=== PATIENT | male | born 1950 | race African-American/Black ===

== ENCOUNTER → 2016-07-11 | Outpatient (CLI) | payer MEDICARE, MEDICAID | LOC: OD 08:34 | DX: R56.9 Unspecified convulsions (principal) | CPT/HCPCS: 36415; 80164 ==

== ENCOUNTER → 2016-07-15 | Outpatient (CLI) | payer MEDICARE, MEDICAID | LOC: RAD 10:51 | DX: D49.6 Neoplasm of unspecified behavior of brain (principal) | CPT/HCPCS: 82565; 70553; A9577 ==

== ENCOUNTER → 2016-12-16 | Outpatient (CLI) | payer MEDICARE, MEDICAID ==
[2016-12-16 10:01] LABS: ABSOLUTE EOSINOPHILS # (AUTO) 0.7 10^3/uL (0.0-0.6); ABSOLUTE LYMPHOCYTES (AUTO) 1.8 10^3/uL (0.5-4.7); ABSOLUTE MONOCYTES (AUTO) 0.4 10^3/uL (0.1-1.4); ABSOLUTE NEUT (AUTO) 2.7 10^3/uL (1.7-8.2); BASOPHILS % (AUTO) 0.5 % (0-2); EOSINOPHILS % (AUTO) 12.9 % (0-6); HEMATOCRIT 43.1 % (37.9-51.0); HEMOGLOBIN 14.5 g/dL (13.5-17.0); HGB HCT DIFFERENCE 0.4; LYMPHOCYTES % (AUTO) 31.8 % (13-45); MEAN CORPUSCULAR HEMOGLOBIN 32.7 pg (27.0-33.4); MEAN CORPUSCULAR HGB CONC 33.6 g/dL (32.0-36.0); MEAN CORPUSCULAR VOLUME 98 fl (80-97); MONOCYTES % (AUTO) 6.7 % (3-13); RED BLOOD COUNT 4.42 10^6/uL (4.35-5.55); RED CELL DISTRIBUTION WIDTH 13.4 % (11.5-14.0); SEGMENTED NEUTROPHILS % (AUTO) 48.1 % (42-78); WHITE BLOOD COUNT 5.7 10^3/uL (4.0-10.5)
[2016-12-16 10:07] LABS: ALANINE AMINOTRANSFERASE 33 U/L (21-72); ALBUMIN 4.1 g/dL (3.5-5.0); ALKALINE PHOSPHATASE 100 U/L (38-126); ANION GAP 14 (5-19); ASPARTATE AMINO TRANSFERASE 22 U/L (17-59); BILIRUBIN,DIRECT 0.4 mg/dL (0.0-0.4); BILIRUBIN,TOTAL 0.9 mg/dL (0.2-1.3); BLOOD UREA NITROGEN 15 mg/dL (7-20); CALCIUM 10.6 mg/dL (8.4-10.2); CARBON DIOXIDE 28 mmol/L (22-30); CHLORIDE 98 mmol/L (98-107); CREATININE RESULT 0.66 mg/dL (0.52-1.25); GLUCOSE 143 mg/dL (75-110); POTASSIUM 4.3 mmol/L (3.6-5.0); SODIUM 139.5 mmol/L (137-145); TOTAL PROTEIN 7.4 g/dL (6.3-8.2)
[2016-12-16 10:17] LABS: VALPROIC ACID < 10.0 ug/mL (50.0-120.0)
== END ==
LOC: OD 08:55
PROVIDERS: ATTEND Family Medicine Geriatric Medicine
DX: E11.9 Type 2 diabetes mellitus without complications (principal); I10 Essential (primary) hypertension; E78.5 Hyperlipidemia, unspecified; Z79.899 Other long term (current) drug therapy
CPT/HCPCS: 36415; 80053; 80164; 83036; 84443; 85025

== ENCOUNTER → 2016-12-23 | Outpatient (CLI) | payer MEDICARE, MEDICAID ==
[2016-12-23 10:03] LABS: ANION GAP 11 (5-19); BLOOD UREA NITROGEN 14 mg/dL (7-20); CALCIUM 9.1 mg/dL (8.4-10.2); CARBON DIOXIDE 28 mmol/L (22-30); CHLORIDE 100 mmol/L (98-107); CREATININE RESULT 0.59 mg/dL (0.52-1.25); GLUCOSE 122 mg/dL (75-110); POTASSIUM 4.3 mmol/L (3.6-5.0); SODIUM 139.4 mmol/L (137-145)
[2016-12-25 10:38] LABS: CREATININE URINE 85.8 mg/dL (Not Estab.); MICROALBUMIN URINE 202.1 ug/mL (Not Estab.)
== END ==
LOC: OD 08:03
PROVIDERS: ATTEND Family Medicine Geriatric Medicine
DX: Z79.899 Other long term (current) drug therapy (principal)
CPT/HCPCS: 36415; 80048; 82043; 82570

== ENCOUNTER → 2017-04-29 | Outpatient (CLI) | payer MEDICARE, MEDICAID ==
--- NOTE | 2017-04-29 11:59 | RADIOLOGY REPORT (SQ) ---
EXAM DESCRIPTION: BARIUM SWALLOW ESOPHAGUS COMPLETED DATE/TIME: 04/29/2017 10:17 am REASON FOR STUDY: DYSPHAGIA R13.10 DYSPHAGIA, UNSPECIFIED COMPARISON: Two-view chest 05/29/2015 TECHNIQUE: Under fluoroscopic guidance, patient ingested effervescent granules followed by thick and thin barium. Fluoroscopic spot images and routine radiographic images acquired and stored on PACS. 12 MM BARIUM TABLET GIVEN: Yes. No significant delay in passage. LIMITATIONS: None. FLUOROSCOPY TIME: FLUORO TIME: 2 minutes 7 series of digital images saved to PACS. FINDINGS: NEUROMUSCULAR COORDINATION OF SWALLOW: Normal. No aspiration. ESOPHAGEAL MOTILITY: Normal peristalsis with occasional tertiary contractions of the esophagus. No e sophageal spasm. ESOPHAGEAL MUCOSA: Normal mucosa without masses or ulceration. GASTRO-ESOPHAGEAL JUNCTION: Tiny sliding hiatal hernia. Unprovoked gastroesophageal reflux to the mi d 3rd of the esophagus NON-GI TRACT STRUCTURES: No significant finding. OTHER: No other significant finding. IMPRESSION: Tiny sliding hiatal hernia. Unprovoked gastroesophageal reflux to the mid 3rd of the es ophagus Occasional tertiary contractions. COMMENT: Quality ID [id number]: Final reports for procedures using fluoroscopy that document radiation exp osure indices, or exposure time and number of fluorographic images (if radiation exposure indices are not available) TECHNICAL DOCUMENTATION: JOB ID: [id number] [employer]- All Rights Reserved
== END ==
LOC: RAD 09:01
PROVIDERS: ATTEND Otolaryngology
DX: R13.10 Dysphagia, unspecified (principal)
CPT/HCPCS: 74220

== ENCOUNTER → 2017-07-01 | Outpatient (CLI) | payer MEDICARE, MEDICAID | LOC: SP 09:54 | PROVIDERS: ATTEND Specialist | DX: R06.02 Shortness of breath (principal) | CPT/HCPCS: 93306 ==

== ENCOUNTER → 2017-11-19 | Outpatient (CLI) | payer MEDICARE, MEDICAID ==
--- NOTE | 2017-11-19 14:54 | RADIOLOGY REPORT (SQ) ---
EXAM DESCRIPTION: CT CHEST WITHOUT COMPLETED DATE/TIME: 11/19/2017 12:44 pm REASON FOR STUDY: DYSPNEA (R06.00) R06.00 DYSPNEA, UNSPECIFIED COMPARISON: CT chest 12/01/2009 Two-view chest 05/29/2015 TECHNIQUE: CT scan performed of the chest without intravenous contrast. Images reviewed with lung, soft tissue and bone windows. Reconstructed coronal and sagittal MPR images reviewed. All images st ored on PACS. All CT scanners at this facility use dose modulation, iterative reconstruction, and/or weight based d osing when appropriate to reduce radiation dose to as low as reasonably achievable (ALARA). [facility]: Dose Right [facility]: CareDose [facility]: Dose Right [facility]: Teradose 4D [facility]: [employer] RADIATION DOSE: CT Rad equipment meets quality standard of care and radiation dose reduction techniq ues were employed. CTDIvol: 17.9 mGy. DLP: 689 mGy-cm. mGy. LIMITATIONS: No technical limitations. FINDINGS: LUNGS AND PLEURA: Mild hyperlucency with enlarged centrilobular airspaces at both lung api jaylon. No acute infiltrates. No pleural effusion. No pneumothorax. No significant interstitial lung disease by CT. HILAR AND MEDIASTINAL STRUCTURES: No identified masses or abnormal nodes. No obvious aneurysm. HEART AND VASCULAR STRUCTURES: Mild coronary artery calcification. Mild cardiomegaly. No pericardia l effusions. UPPER ABDOMEN: Contracted gallbladder with single calcified stone. Transverse colon diverticuli. THYROID AND OTHER SOFT TISSUES: Thyroid unremarkable. No axillary adenopathy. Bilateral gynecomasti a is present. BONES: No significant finding. HARDWARE: None in the chest. OTHER: No other significant findings. IMPRESSION: Minimal obstructive lung disease at both apices. TECHNICAL DOCUMENTATION: JOB ID: [id number] Quality ID # [id number]: Final reports with documentation of one or more dose reduction techniques (e.g., Au tomated exposure control, adjustment of the mA and/or kV according to patient size, use of iterative reconstruction technique) 2010 [employer]- All Rights Reserved Reading location - IP/workstation name: [email or web address]
== END ==
LOC: RAD 12:22
PROVIDERS: ATTEND Physician Assistant
DX: R06.00 Dyspnea, unspecified (principal)
CPT/HCPCS: 71250

== ENCOUNTER → 2018-03-11 | Outpatient (CLI) | payer MEDICARE, MEDICAID ==
--- NOTE | 2018-03-11 09:38 | RADIOLOGY REPORT (SQ) ---
EXAM DESCRIPTION: SHOULDER RIGHT 2 OR MORE VIEWS COMPLETED DATE/TIME: 03/11/2018 9:24 am REASON FOR STUDY: RT SHOULDER PAIN COMPARISON: None. NUMBER OF VIEWS: Two views right shoulder including AP and scapular Y. LIMITATIONS: None. FINDINGS: No displaced fracture. Mild glenohumeral degenerative change. No right pneumothorax or l nohelia lesion. AC joint intact. OTHER: No other significant finding. IMPRESSION: No acute or suspicious right shoulder radiographic findings. TECHNICAL DOCUMENTATION: JOB ID: [id number] Reading location - IP/workstation name: [email or web address]
[2018-03-13 14:00] LABS: ABSOLUTE EOSINOPHILS # (AUTO) 0.8 10^3/uL (0.0-0.6); ABSOLUTE LYMPHOCYTES (AUTO) 1.5 10^3/uL (0.5-4.7); ABSOLUTE MONOCYTES (AUTO) 0.4 10^3/uL (0.1-1.4); ABSOLUTE NEUT (AUTO) 3.3 10^3/uL (1.7-8.2); BASOPHILS % (AUTO) 0.5 % (0-2); EOSINOPHILS % (AUTO) 12.7 % (0-6); HEMATOCRIT 41.9 % (37.9-51.0); HEMOGLOBIN 14.6 g/dL (13.5-17.0); LYMPHOCYTES % (AUTO) 25.1 % (13-45); MEAN CORPUSCULAR HEMOGLOBIN 33.1 pg (27.0-33.4); MEAN CORPUSCULAR HGB CONC 34.8 g/dL (32.0-36.0); MEAN CORPUSCULAR VOLUME 95 fl (80-97); MONOCYTES % (AUTO) 6.1 % (3-13); PLATELET COUNT 127 10^3/uL (150-450); RED CELL DISTRIBUTION WIDTH 14.3 % (11.5-14.0); SEGMENTED NEUTROPHILS % (AUTO) 55.6 % (42-78); TOTAL CELLS COUNTED % (AUTO) 100 %
[2018-03-13 14:23] LABS: ALANINE AMINOTRANSFERASE 36 U/L (21-72); ALKALINE PHOSPHATASE 85 U/L (38-126); ANION GAP 10 (5-19); ASPARTATE AMINO TRANSFERASE 19 U/L (17-59); BILIRUBIN,DIRECT 0.2 mg/dL (0.0-0.4); BILIRUBIN,TOTAL 0.8 mg/dL (0.2-1.3); BLOOD UREA NITROGEN 18 mg/dL (7-20); CALCIUM 9.2 mg/dL (8.4-10.2); CARBON DIOXIDE 28 mmol/L (22-30); CHLORIDE 98 mmol/L (98-107); CHOLESTEROL 91.18 mg/dL (0-200); GLUCOSE 106 mg/dL (75-110); POTASSIUM 4.6 mmol/L (3.6-5.0); SODIUM 135.6 mmol/L (137-145); TRIGLYCERIDES 103 mg/dL (<150)
[2018-03-13 14:38] LABS: DIRECT LDL < 30 mg/dL (<100)
[2018-03-14 14:38] LABS: CREATININE URINE 52.5 mg/dL (Not Estab.); MICROALBUMIN URINE <3.0 ug/mL (Not Estab.)
== END ==
LOC: OD 08:50
PROVIDERS: ATTEND Family Medicine Geriatric Medicine
DX: E11.42 Type 2 diabetes mellitus with diabetic polyneuropathy (principal); E78.5 Hyperlipidemia, unspecified; E03.9 Hypothyroidism, unspecified; J44.9 Chronic obstructive pulmonary disease, unspecified; M25.511 Pain in right shoulder; Z79.899 Other long term (current) drug therapy
CPT/HCPCS: 36415; 80053; 80061; 82043; 82570; 83036; 84443; 85025

== ENCOUNTER 2018-05-17 14:43 | Emergency (ER) | payer MEDICARE, MEDICAID ==
--- NOTE | 2018-05-17 16:09 | ER Document Report ---
ED Medical Screen (RME) - General Chief Complaint: Low Back Pain Stated Complaint: FALL/BUTTOCK AND BACK PAIN Time Seen by Provider: 05/17/18 16:05 Mode of Arrival: Wheelchair Information source: Patient Notes: Patient presents stating he was going up some stairs yesterday and lost his balance falling on the ground. Patient denies any head injury or loss of consciousness. Patient does complain of left lateral rib tenderness and pain with inspiration. Patient reports some shortness of breath but states this is normal for him given his history of COPD. Patient does complain of a large bruise to the sacral area. Patient complains of pain to left shoulder and low back and sacrum. I have greeted and performed a rapid initial assessment of this patient. A comprehensive ED assessment and evaluation of the patient, analysis of test results and completion of the medical decision making process will be conducted by additional ED providers. TRAVEL OUTSIDE OF THE [place] IN LAST 30 DAYS: No - Related Data Allergies/Adverse Reactions: iodine [Iodine] Allergy (Mild, Verified 08/27/13 16:54) VOMITING Shellfish * [Shellfish] Allergy (Mild, Verified 07/15/13 11:59) VOMITING Past Medical History - Past Medical History Cardiac Medical History: Reports: Hx Congestive Heart Failure, Hx Coronary Artery Disease, Hx Hypercholesterolemia, Hx Hypertension - medicated Denies: Hx Atrial Fibrillation, Hx Heart Attack, Hx Peripheral Vascular Disease, Hx Pulmonary Embolism, Hx Heart Murmur Pulmonary Medical History: Reports: Hx Asthma - COPD, Hx Bronchitis, Hx COPD Denies: Hx Pneumonia, Hx Respiratory Failure, Hx Sleep Apnea, Hx Tuberculosis Neurological Medical History: Reports: Hx Cerebrovascular Accident - 1994 left sided weakness/uses cane, Hx Seizures - LAST SEIZURE 6 MTHS AGO, HAS SMALL SEIZURES Endocrine Medical History: Reports: Hx Diabetes Mellitus Type 2, Hx Hypothyroidism. Denies: Hx Graves' Disease, Hx Hyperthyroidism Renal/ Medical History: Reports: Hx Kidney Stones. Denies: Hx Benign Prostatic Hyperplasia, Hx End Stage Renal Disease, Hx Peritoneal Dialysis Malignancy Medical History: Denies Hx Leukemia, Denies Hx Lung Cancer GI Medical History: Reports: Hx Gastroesophageal Reflux Disease. Denies: Hx Crohn's Disease, Hx Hepatitis, Hx Hiatal Hernia, Hx Irritable Bowel, Hx Liver Failure, Hx Pancreatitis, Hx Ulcer Musculoskeltal Medical History: Reports Hx Arthritis - gout , Denies Hx Fibromyalgia, Reports Hx Multiple Sclerosis, Denies Hx Muscular Dystrophy Psychiatric Medical History: Reports: Hx Depression Denies: Hx Bipolar Disorder, Hx Dementia, Hx Post Traumatic Stress Disorder, Hx Schizophrenia Traumatic Medical History: Denies: Hx Fractures Infectious Medical History: Denies: Hx Hepatitis, Hx HIV Past Surgical History: Reports: Hx Orthopedic Surgery - right knee. Denies: Hx Appendectomy, Hx Bowel Surgery, Hx Cholecystectomy, Hx Colostomy, Hx Coronary Artery Bypass Graft, Hx Gastric Bypass Surgery, Hx Herniorrhaphy, Hx Open Heart Surgery, Hx Pacemaker, Hx Tonsillectomy - Immunizations Hx Diphtheria, Pertussis, Tetanus Vaccination: No Physical Exam - Vital signs Vitals: Temp Pulse Resp BP Pulse Ox 97.4 F 55 L 14 122/51 L 93 05/17/18 15:10 05/17/18 15:10 05/17/18 15:10 05/17/18 15:10 05/17/18 15:10 - Respiratory Chest status: Pain on movement, Pain with cough, Pain with deep breathing Chest palpation: Tender - Left lateral rib tenderness - Back Back: Tender - Sacral tenderness with ecchymotic area Course - Vital Signs Vital signs: Temp Pulse Resp BP Pulse Ox 97.4 F 55 L 14 122/51 L 93 05/17/18 15:10 05/17/18 15:10 05/17/18 15:10 05/17/18 15:10 05/17/18 15:10 Doctor's Discharge - Discharge Referrals: KRISTAL CROCORAN MD [Primary Care Provider] - Follow up as needed
[2018-05-17 17:00] LABS: ABSOLUTE MONOCYTES (AUTO) 0.7 10^3/uL (0.1-1.4); ABSOLUTE NEUT (AUTO) 4.7 10^3/uL (1.7-8.2); BASOPHILS % (AUTO) 0.4 % (0-2); EOSINOPHILS % (AUTO) 11.6 % (0-6); HEMATOCRIT 43.3 % (37.9-51.0); HEMOGLOBIN 15.2 g/dL (13.5-17.0); LYMPHOCYTES % (AUTO) 23.8 % (13-45); MEAN CORPUSCULAR HEMOGLOBIN 33.5 pg (27.0-33.4); MEAN CORPUSCULAR HGB CONC 35.1 g/dL (32.0-36.0); MEAN CORPUSCULAR VOLUME 95 fl (80-97); MONOCYTES % (AUTO) 8.2 % (3-13); PLATELET COUNT 182 10^3/uL (150-450); RED BLOOD COUNT 4.54 10^6/uL (4.35-5.55); RED CELL DISTRIBUTION WIDTH 13.4 % (11.5-14.0); TOTAL CELLS COUNTED % (AUTO) 100 %; WHITE BLOOD COUNT 8.4 10^3/uL (4.0-10.5)
[2018-05-17 17:06] LABS: INTERNATIONAL RATION (INR) 1.18; PROTHROMBIN TIME 15.6 SEC (11.4-15.4)
[2018-05-17 17:07] LABS: PARTIAL THROMBOPLASTIN TIME 39.6 SEC (23.5-35.8)
[2018-05-17 17:16] LABS: APPEARANCE,URINE SLIGHTLY-CLOUDY; BILIRUBIN,URINE NEGATIVE (NEGATIVE); COLOR,URINE YELLOW; GLUCOSE, URINE NEGATIVE (NEGATIVE); KETONES,URINE NEGATIVE (NEGATIVE); LEUKOCYTE ESTERASE,URINE NEGATIVE (NEGATIVE); NITRITE,URINE NEGATIVE (NEGATIVE); PROTEIN,URINE NEGATIVE (NEGATIVE); URINE SPECIFIC GRAVITY 1.021
[2018-05-17 17:20] LABS: ANION GAP 9 (5-19); BLOOD UREA NITROGEN 13 mg/dL (7-20); CALCIUM 9.6 mg/dL (8.4-10.2); CARBON DIOXIDE 30 mmol/L (22-30); CHLORIDE 93 mmol/L (98-107); GLUCOSE 115 mg/dL (75-110); POTASSIUM 4.6 mmol/L (3.6-5.0); SODIUM 132.1 mmol/L (137-145)
--- NOTE | 2018-05-17 17:54 | RADIOLOGY REPORT (SQ) ---
EXAM DESCRIPTION: SACRUM AND COCCYX COMPLETED DATE/TIME: 05/17/2018 5:45 pm REASON FOR STUDY: fall COMPARISON: None. NUMBER OF VIEWS: Three views. TECHNIQUE: AP, lateral, and tilt views of the sacrum and coccyx. LIMITATIONS: None. FINDINGS: MINERALIZATION: Normal. BONES: No acute fracture or dislocation. No worrisome bone lesions. SOFT TISSUES: No soft tissue swelling. No foreign body. OTHER: No other significant finding. IMPRESSION: NEGATIVE STUDY OF THE SACRUM AND COCCYX. TECHNICAL DOCUMENTATION: JOB ID: [id number] [employer] All Rights Reserved Reading location - IP/workstation name: [email or web address]
--- NOTE | 2018-05-17 17:55 | RADIOLOGY REPORT (SQ) ---
EXAM DESCRIPTION: L SPINE WHOLE COMPLETED DATE/TIME: 05/17/2018 5:45 pm REASON FOR STUDY: fall COMPARISON: None. NUMBER OF VIEWS: Five views including obliques. TECHNIQUE: AP, lateral, oblique, and sacral radiographic images acquired of the lumbar spine. LIMITATIONS: None. FINDINGS: MINERALIZATION: Normal. SEGMENTATION: Normal. No transitional anatomy. ALIGNMENT: Normal. VERTEBRAE: Maintained height. No fracture or worrisome bone lesion. DISCS: Multilevel disc space narrowing with osteophytes. POSTERIOR ELEMENTS: Pedicles and facets are intact. No pars defect or posterior arch defects. Facet arthropathy is present. HARDWARE: None in the spine. PARASPINAL SOFT TISSUES: Normal. PELVIS: Intact as visualized. No fractures or worrisome bone lesions. SI joints intact. OTHER: No other significant finding. IMPRESSION: SPONDYLOSIS WITHOUT BONE LESION OR FRACTURE. TECHNICAL DOCUMENTATION: JOB ID: [id number] [employer]- All Rights Reserved Reading location - IP/workstation name: [email or web address]
--- NOTE | 2018-05-17 18:11 | RADIOLOGY REPORT (SQ) ---
EXAM DESCRIPTION: SHOULDER LEFT 2 OR MORE VIEWS COMPLETED DATE/TIME: 05/17/2018 5:45 pm REASON FOR STUDY: fall COMPARISON: Chest x-ray 05/28/2015, left rib series 05/17/2018. NUMBER OF VIEWS: Three views. TECHNIQUE: Internal rotation, external rotation, and Y view images acquired of the left shoulder. LIMITATIONS: None. FINDINGS: MINERALIZATION: Normal. BONES: No acute fracture or dislocation. JOINTS: No dislocation. VISUALIZED LUNGS AND RIBS: No pneumothorax. No displaced rib fracture. SOFT TISSUES: No radiopaque foreign body. IMPRESSION: No radiographic evidence of acute injury at the left shoulder. TECHNICAL DOCUMENTATION: JOB ID: [id number] [place]-[id number] 2010 [employer]- All Rights Reserved Reading location - IP/workstation name: [email or web address]
--- NOTE | 2018-05-17 18:13 | RADIOLOGY REPORT (SQ) ---
EXAM DESCRIPTION: RIBS LEFT W/PA CHEST COMPLETED DATE/TIME: 05/17/2018 5:45 pm REASON FOR STUDY: fall COMPARISON: Chest x-ray 05/29/2015. TECHNIQUE: Frontal view of the chest and additional views of the left ribs acquired. NUMBER OF VIEWS: Five view. LIMITATIONS: None. FINDINGS: FRONTAL CXR: No pneumothorax. No pleural effusion. Mild atelectasis at the left lung bas e. RIBS: No displaced left rib fractures. IMPRESSION: No pneumothorax. No displaced left rib fractures. Mild atelectasis at the left lung ba se. COMMENT: SITE OF TRAUMA/COMPLAINT MARKED/STAMP COMPLETED: NO. TECHNICAL DOCUMENTATION: JOB ID: [id number] OH-[id number] 2010 [employer]- All Rights Reserved Reading location - IP/workstation name: [email or web address]
[2018-05-17] MEDS ORDERED: LIDOCAINE 5% (700 MG) TRANSDERMAL ADH..PATCH TP ONE (19:40)
--- NOTE | 2018-05-17 19:42 | ER Document Report ---
ED General - General Chief Complaint: Low Back Pain Stated Complaint: FALL/BUTTOCK AND BACK PAIN Time Seen by Provider: 05/17/18 16:05 Mode of Arrival: Wheelchair Notes: Patient is a 68-year-old male with history of atrial fibrillation, currently anticoagulant with apixaban, hypertension, hyperlipidemia, obesity, who presents after a falling 24 hours ago onto his buttock and low back. States this is was a mechanical fall, denies any component of syncope. He states that over that time he has had increasing dull, throbbing, constant pain to his buttock and low back. States any movement worsens the pain. Has not tried anything for improvement of the pain. Has not seen his general physician regarding today's concerns. Denies any bowel or bladder incontinence, difficulty walking, urinary retention. Denies hitting his head or neck during the fall. He does also complain of some left lower rib pain with inspiration as well as left shoulder pain. TRAVEL OUTSIDE OF THE [place] IN LAST 30 DAYS: No - Related Data Allergies/Adverse Reactions: iodine [Iodine] Allergy (Mild, Verified 08/27/13 16:54) VOMITING Shellfish * [Shellfish] Allergy (Mild, Verified 07/15/13 11:59) VOMITING Past Medical History - General Information source: Patient - Social History Smoking Status: Former Smoker Frequency of alcohol use: None Drug Abuse: None Lives with: Family Family History: CAD, DM Patient has suicidal ideation: No Patient has homicidal ideation: No - Past Medical History Cardiac Medical History: Reports: Hx Congestive Heart Failure, Hx Coronary Artery Disease, Hx Hypercholesterolemia, Hx Hypertension - medicated Denies: Hx Atrial Fibrillation, Hx Heart Attack, Hx Peripheral Vascular Disease, Hx Pulmonary Embolism, Hx Heart Murmur Pulmonary Medical History: Reports: Hx Asthma - COPD, Hx Bronchitis, Hx COPD Denies: Hx Pneumonia, Hx Respiratory Failure, Hx Sleep Apnea, Hx Tuberculosis Neurological Medical History: Reports: Hx Cerebrovascular Accident - 1994 left sided weakness/uses cane, Hx Seizures - LAST SEIZURE 6 MTHS AGO, HAS SMALL SEIZURES Endocrine Medical History: Reports: Hx Diabetes Mellitus Type 2, Hx Hypothyroidism. Denies: Hx Graves' Disease, Hx Hyperthyroidism Renal/ Medical History: Reports: Hx Kidney Stones. Denies: Hx Benign Prostatic Hyperplasia, Hx End Stage Renal Disease, Hx Peritoneal Dialysis Malignancy Medical History: Denies Hx Leukemia, Denies Hx Lung Cancer GI Medical History: Reports: Hx Gastroesophageal Reflux Disease. Denies: Hx Crohn's Disease, Hx Hepatitis, Hx Hiatal Hernia, Hx Irritable Bowel, Hx Liver Failure, Hx Pancreatitis, Hx Ulcer Musculoskeletal Medical History: Reports Hx Arthritis - gout , Denies Hx Fibromyalgia, Reports Hx Multiple Sclerosis, Denies Hx Muscular Dystrophy Psychiatric Medical History: Reports: Hx Depression Denies: Hx Bipolar Disorder, Hx Dementia, Hx Post Traumatic Stress Disorder, Hx Schizophrenia Traumatic Medical History: Denies: Hx Fractures Infectious Medical History: Denies: Hx Hepatitis, Hx HIV Past Surgical History: Reports: Hx Orthopedic Surgery - right knee. Denies: Hx Appendectomy, Hx Bowel Surgery, Hx Cholecystectomy, Hx Colostomy, Hx Coronary Artery Bypass Graft, Hx Gastric Bypass Surgery, Hx Herniorrhaphy, Hx Open Heart Surgery, Hx Pacemaker, Hx Tonsillectomy - Immunizations Hx Diphtheria, Pertussis, Tetanus Vaccination: No Hx Pneumococcal Vaccination: 01/31/13 Review of Systems - Review of Systems Notes: Constitutional: Negative for fever. Eyes: Negative for visual changes. ENT: Negative for facial injury Cardiovascular: Negative for chest injury. Respiratory: Negative for shortness of breath. Gastrointestinal: Negative for abdominal injury. Genitourinary: Negative for genital injury Musculoskeletal: Positive for low back pain and left shoulder pain Skin: Positive for ecchymosis to the buttock and low back Neurological: Negative for head injury. Physical Exam - Vital signs Vitals: Temp Pulse Resp BP Pulse Ox 97.4 F 55 L 14 122/51 L 93 05/17/18 15:10 05/17/18 15:10 05/17/18 15:10 05/17/18 15:10 05/17/18 15:10 Interpretation: Bradycardic Notes: PHYSICAL EXAMINATION: GENERAL: Well-appearing, no acute distress. HEAD: Atraumatic, normocephalic. EYES: Pupils equal round and reactive to light, extraocular movements intact, sclera anicteric, conjunctiva are normal. ENT: nares patent, no oral pharyngeal trauma. No hemotympanum, no Quiroga's sign , no raccoon eyes. NECK: No midline cervical spine tenderness. Patient able to move their head to 45 bilaterally without any discomfort. LUNGS: Breath sounds clear to auscultation bilaterally and equal. No wheezes rales or rhonchi. HEART: Regular rate and rhythm without murmurs. CHEST WALL: No ecchymosis over the chest wall. ABDOMEN: Soft, nontender, normoactive bowel sounds. No guarding, no rebound. No abdominal bruising EXTREMITIES: Normal range of motion, no pitting or edema. No long bone deformities. BACK: No midline spinal tenderness, step-offs, or deformities. Bruising above the level of the buttocks at the sacral level. NEUROLOGICAL: 5 out of 5 strength both distally and proximally bilateral lower extremities. 2+ patellar reflexes bilaterally. No clonus. Sensation grossly intact in the bilateral lower extremities. Patient is able to ambulate without difficulty. PSYCH: Normal mood, normal affect. SKIN: Warm, Dry, normal turgor, bruising as above Course - Re-evaluation Re-evalutation: 05/17/18 19:41 Presentation of a well patient in no acute distress, vitals within normal limits after a fall approximately 24 hours ago. Patient adamantly denies hitting his head or neck to indicate need for CT of the head or cervical spine. Patient has no focal deformities or limited range of motion in any joint space to indicate need for extremity imaging. However, the patient was complaining of pain to the left shoulder and an x-ray that has been completed is noted to be normal. The patient is also complaining of some lower rib pain on the left side as well as low back pain and sacral pain. X-rays of these affected areas obtained in triage are likewise noted to be normal. Chest and abdominal exam are benign without any focal tenderness, shortness of breath, or bruising over the chest or abdominal wall. Patient has no flank tenderness. There is no obvious findings on trauma exam today and therefore no further imaging or evaluation will be obtained at this time. I've instructed the patient to return to emergency room immediately should they have any worsening or new symptoms that are concerning to them. - Vital Signs Vital signs: Temp Pulse Resp BP Pulse Ox 97.5 F 56 L 20 131/76 H 95 05/17/18 20:02 05/17/18 20:02 05/17/18 20:02 05/17/18 20:02 05/17/18 20:02 - Laboratory Result Diagrams: 05/17/18 16:45 05/17/18 16:45 Laboratory results interpreted by me: 05/17/18 05/17/18 05/17/18 16:45 16:45 16:45 [facility] 33.5 H Eosinophils % 11.6 H Absolute Eosinophils 1.0 H PT 15.6 H APTT 39.6 H Sodium 132.1 L Chloride 93 L Glucose 115 H Urine Urobilinogen 05/17/18 16:45 [facility] Eosinophils % Absolute Eosinophils PT APTT Sodium Chloride Glucose Urine Urobilinogen 4.0 H - Diagnostic Test Radiology reviewed: Image reviewed, Reports reviewed Radiology results interpreted by me: 05/17/18 19:42 Chest x-ray: No acute infiltrate or pneumothorax Left shoulder x-ray: No acute fracture or dislocation Discharge - Discharge Clinical Impression: Fall Qualifiers: Encounter type: initial encounter Qualified Code(s): W19.XXXA - Unspecified fall, initial encounter Traumatic ecchymosis of buttock Qualifiers: Encounter type: initial encounter Qualified Code(s): S30.0XXA - Contusion of lower back and pelvis, initial encounter Low back pain Qualifiers: Chronicity: acute Back pain laterality: bilateral Sciatica presence: without sciatica Qualified Code(s): M54.5 - Low back pain Left shoulder pain Qualifiers: Chronicity: acute Qualified Code(s): M25.512 - Pain in left shoulder Condition: Good Disposition: HOME, SELF-CARE Additional Instructions: You have been seen in the Emergency Department (ED) today following a fall. Your workup today did not reveal any injuries that require you to stay in the hospital. You can expect, though, to be stiff and sore for the next several days. You can take Tylenol 1000 mg every 6 hours as needed for pain. You can apply a hot pack or electric heating pad to the sore areas. You can also use topical "Aspercreme with lidocaine" to sore areas as needed. Please follow up with your primary care doctor as soon as possible regarding today's ED visit and your recent fall. Call your doctor or return to the ED if you develop a sudden or severe headache , confusion, slurred speech, facial droop, weakness or numbness in any arm or leg, extreme fatigue, vomiting more than two times, severe abdominal pain, or other symptoms that concern you. Referrals: KRISTAL CORCORAN MD [Primary Care Provider] - Follow up as needed
[2018-05-17 20:05] VITALS: BP 131/76
--- NOTE | 2018-05-18 00:48 | EKG REPORT ---
SEVERITY:- ABNORMAL ECG - SINUS BRADYCARDIA LAD, CONSIDER LEFT ANTERIOR FASCICULAR BLOCK : Confirmed by: Ana Maria Saini MD 18-May-2018 00:48:24
== END 2018-05-17 20:10 | disposition home or self-care (01) ==
LOC: ER 14:43
DX: S30.0XXA Contusion of lower back and pelvis, initial encounter (principal); M54.5 Low back pain; M25.512 Pain in left shoulder; W18.30XA Fall on same level, unspecified, initial encounter; E66.01 Morbid (severe) obesity due to excess calories; E78.5 Hyperlipidemia, unspecified; I48.91 Unspecified atrial fibrillation; I50.9 Heart failure, unspecified; I11.0 Hypertensive heart disease with heart failure; E78.00 Pure hypercholesterolemia, unspecified; Z79.02 Long term (current) use of antithrombotics/antiplatelets; Z87.442 Personal history of urinary calculi
CPT/HCPCS: 36415; 72110; 72220; 80048; 81001; 85025; 85610; 85730; 93005; 93010; 99284

== ENCOUNTER → 2018-05-28 | Outpatient (CLI) | payer MEDICARE, MEDICAID ==
--- NOTE | 2018-05-28 14:21 | RADIOLOGY REPORT (SQ) ---
EXAM DESCRIPTION: TIBIA FIBULA LEFT COMPLETED DATE/TIME: 05/28/2018 1:57 pm REASON FOR STUDY: PAIN IN LEG, UNSPECIFIED M79.606 PAIN IN LEG, UNSPECIFIED COMPARISON: None. NUMBER OF VIEWS: Two views. TECHNIQUE: Two radiographic images acquired of the left tibia and fibula to include the knee and ank le in at least one projection. LIMITATIONS: None. FINDINGS: MINERALIZATION: Normal. BONES: No acute fracture or dislocation. No worrisome bone lesions. SOFT TISSUES: No obvious swelling or foreign body. OTHER: No other significant finding. IMPRESSION: NEGATIVE STUDY OF THE LEFT TIBIA AND FIBULA. NO RADIOGRAPHIC EVIDENCE OF ACUTE INJURY. TECHNICAL DOCUMENTATION: JOB ID: [id number] [employer]- All Rights Reserved Reading location - IP/workstation name: [email or web address]
== END ==
LOC: OD 13:27
PROVIDERS: ATTEND Family Medicine Geriatric Medicine
DX: M79.662 Pain in left lower leg (principal)

== ENCOUNTER 2018-05-29 10:58 | Emergency (ER) | payer MEDICARE, MEDICAID ==
--- NOTE | 2018-05-29 11:22 | ER Document Report ---
ED Medical Screen (RME) - General Chief Complaint: Leg Pain Stated Complaint: LEG PAIN Time Seen by Provider: 05/29/18 11:18 Notes: Patient is here because of redness of the left lower leg. He fell about a week ago scraping that area. He uses a walker to ambulate. The area has swollen and gotten red in the past couple of days. He reportedly had an x-ray of the leg done yesterday at [facility]. TRAVEL OUTSIDE OF THE [place] IN LAST 30 DAYS: No - Related Data Allergies/Adverse Reactions: iodine [Iodine] Allergy (Mild, Verified 05/29/18 11:01) VOMITING Shellfish * [Shellfish] Allergy (Mild, Verified 05/29/18 11:01) VOMITING Past Medical History - Social History Chew tobacco use (# tins/day): No Frequency of alcohol use: None Drug Abuse: None - Past Medical History Cardiac Medical History: Reports: Hx Congestive Heart Failure, Hx Coronary Artery Disease, Hx Hypercholesterolemia, Hx Hypertension - medicated Denies: Hx Atrial Fibrillation, Hx Heart Attack, Hx Peripheral Vascular Disease, Hx Pulmonary Embolism, Hx Heart Murmur Pulmonary Medical History: Reports: Hx Asthma - COPD, Hx Bronchitis, Hx COPD Denies: Hx Pneumonia, Hx Respiratory Failure, Hx Sleep Apnea, Hx Tuberculosis Neurological Medical History: Reports: Hx Cerebrovascular Accident - 1994 left sided weakness/uses cane, Hx Seizures - LAST SEIZURE 6 MTHS AGO, HAS SMALL SEIZURES Endocrine Medical History: Reports: Hx Diabetes Mellitus Type 2, Hx Hypothyroidism. Denies: Hx Graves' Disease, Hx Hyperthyroidism Renal/ Medical History: Reports: Hx Kidney Stones. Denies: Hx Benign Prostatic Hyperplasia, Hx End Stage Renal Disease, Hx Peritoneal Dialysis Malignancy Medical History: Denies Hx Leukemia, Denies Hx Lung Cancer GI Medical History: Reports: Hx Gastroesophageal Reflux Disease. Denies: Hx Crohn's Disease, Hx Hepatitis, Hx Hiatal Hernia, Hx Irritable Bowel, Hx Liver Failure, Hx Pancreatitis, Hx Ulcer Musculoskeltal Medical History: Reports Hx Arthritis - gout , Denies Hx Fibromyalgia, Reports Hx Multiple Sclerosis, Denies Hx Muscular Dystrophy Psychiatric Medical History: Reports: Hx Depression Denies: Hx Bipolar Disorder, Hx Dementia, Hx Post Traumatic Stress Disorder, Hx Schizophrenia Traumatic Medical History: Denies: Hx Fractures Infectious Medical History: Denies: Hx Hepatitis, Hx HIV Past Surgical History: Reports: Hx Orthopedic Surgery - right knee. Denies: Hx Appendectomy, Hx Bowel Surgery, Hx Cholecystectomy, Hx Colostomy, Hx Coronary Artery Bypass Graft, Hx Gastric Bypass Surgery, Hx Herniorrhaphy, Hx Open Heart Surgery, Hx Pacemaker, Hx Tonsillectomy - Immunizations Hx Diphtheria, Pertussis, Tetanus Vaccination: No Physical Exam - Vital signs Vitals: Temp Pulse Resp BP Pulse Ox 97.5 F 57 L 16 126/65 H 94 05/29/18 11:04 05/29/18 11:04 05/29/18 11:04 05/29/18 11:04 05/29/18 11:04 Course - Vital Signs Vital signs: Temp Pulse Resp BP Pulse Ox 97.5 F 57 L 16 126/65 H 94 05/29/18 11:04 05/29/18 11:04 05/29/18 11:04 05/29/18 11:04 05/29/18 11:04 Doctor's Discharge - Discharge Referrals: RADHA CHAO MD [Primary Care Provider] - Follow up as needed
[2018-05-29 11:57] LABS: ABSOLUTE LYMPHOCYTES (AUTO) 1.2 10^3/uL (0.5-4.7); ABSOLUTE MONOCYTES (AUTO) 0.5 10^3/uL (0.1-1.4); ABSOLUTE NEUT (AUTO) 4.7 10^3/uL (1.7-8.2); BASOPHILS % (AUTO) 0.6 % (0-2); EOSINOPHILS % (AUTO) 13.5 % (0-6); HEMATOCRIT 39.6 % (37.9-51.0); HEMOGLOBIN 13.6 g/dL (13.5-17.0); LYMPHOCYTES % (AUTO) 15.8 % (13-45); MEAN CORPUSCULAR HEMOGLOBIN 33.1 pg (27.0-33.4); MEAN CORPUSCULAR HGB CONC 34.4 g/dL (32.0-36.0); MEAN CORPUSCULAR VOLUME 96 fl (80-97); MONOCYTES % (AUTO) 7.2 % (3-13); PLATELET COUNT 239 10^3/uL (150-450); RED BLOOD COUNT 4.11 10^6/uL (4.35-5.55); RED CELL DISTRIBUTION WIDTH 13.7 % (11.5-14.0); SEGMENTED NEUTROPHILS % (AUTO) 62.9 % (42-78); TOTAL CELLS COUNTED % (AUTO) 100 %; WHITE BLOOD COUNT 7.5 10^3/uL (4.0-10.5)
[2018-05-29 12:19] LABS: ALANINE AMINOTRANSFERASE 21 U/L (21-72); ALBUMIN 4.3 g/dL (3.5-5.0); ALKALINE PHOSPHATASE 167 U/L (38-126); ANION GAP 8 (5-19); ASPARTATE AMINO TRANSFERASE 17 U/L (17-59); BILIRUBIN,DIRECT 0.3 mg/dL (0.0-0.4); BILIRUBIN,TOTAL 0.8 mg/dL (0.2-1.3); BLOOD UREA NITROGEN 14 mg/dL (7-20); CALCIUM 9.7 mg/dL (8.4-10.2); CARBON DIOXIDE 31 mmol/L (22-30); CHLORIDE 98 mmol/L (98-107); GLUCOSE 125 mg/dL (75-110); POTASSIUM 4.6 mmol/L (3.6-5.0); SODIUM 137.4 mmol/L (137-145); TOTAL PROTEIN 6.9 g/dL (6.3-8.2)
[2018-05-29] MEDS ORDERED: CEPHALEXIN 500 MG CAPSULE PO ONE (12:42)
--- NOTE | 2018-05-29 12:42 | ER Document Report ---
ED Extremity Problem, Lower - General Chief Complaint: Leg Pain Stated Complaint: LEG PAIN Time Seen by Provider: 05/29/18 11:18 Mode of Arrival: Medic Information source: Patient Notes: 68-year-old male presented to ED for complaint of redness to his lower left anterior leg. He states he fell about a week ago scraping his knee and he has bruising and scabbed at this area. He states he uses a walker to walk at home. He states he has a home health nurse who told him that he needed to come to the emergency room and have his leg examined. It is very mildly erythematous no abscess noted. He states that he had a x-ray done yesterday at [facility]. Patient states he quit smoking and drinking. He states he has a history of CHF coronary artery disease blood pressure and cholesterol that is all medicated. He also history of asthma and COPD as well as bronchitis. Patient is alert and oriented respirations regular and unlabored at this time speaking in full sentences. TRAVEL OUTSIDE OF THE [place] IN LAST 30 DAYS: No - HPI Patient complains to provider of: Pain, Swelling - mild swelling at scabbed area Location: Leg - left lower leg Occurred: Last week Where: Home, Indoors Onset/Duration: Gradual - Related Data Allergies/Adverse Reactions: iodine [Iodine] Allergy (Mild, Verified 05/29/18 11:01) VOMITING Shellfish * [Shellfish] Allergy (Mild, Verified 05/29/18 11:01) VOMITING Past Medical History - General Information source: Patient - Social History Smoking Status: Former Smoker Chew tobacco use (# tins/day): No Frequency of alcohol use: None Drug Abuse: None Family History: CAD, DM Patient has suicidal ideation: No Patient has homicidal ideation: No - Past Medical History Cardiac Medical History: Reports: Hx Congestive Heart Failure, Hx Coronary Artery Disease, Hx Hypercholesterolemia, Hx Hypertension - medicated Pulmonary Medical History: Reports: Hx Asthma - COPD, Hx Bronchitis, Hx COPD EENT Medical History: Reports: None Neurological Medical History: Reports: Hx Cerebrovascular Accident - 1994 left sided weakness/uses cane, Hx Seizures - LAST SEIZURE 6 MTHS AGO, HAS SMALL SEIZURES Endocrine Medical History: Reports: Hx Diabetes Mellitus Type 2, Hx Hypothyroidism Renal/ Medical History: Reports: None, Hx Kidney Stones. Denies: Hx Benign Prostatic Hyperplasia, Hx End Stage Renal Disease, Hx Peritoneal Dialysis Malignancy Medical History: Reports None GI Medical History: Reports: None, Hx Gastroesophageal Reflux Disease Musculoskeletal Medical History: Reports Hx Arthritis - gout , Reports Hx Gout Skin Medical History: Reports None Psychiatric Medical History: Reports: Hx Depression Traumatic Medical History: Reports: None Infectious Medical History: Reports: None Past Surgical History: Reports: Hx Orthopedic Surgery - right knee - Immunizations Hx Diphtheria, Pertussis, Tetanus Vaccination: No Hx Pneumococcal Vaccination: 01/31/13 Review of Systems - Review of Systems Constitutional: No symptoms reported EENT: No symptoms reported Cardiovascular: No symptoms reported Respiratory: No symptoms reported Gastrointestinal: No symptoms reported Genitourinary: No symptoms reported Male Genitourinary: No symptoms reported Musculoskeletal: No symptoms reported Skin: No symptoms reported, Other - cellulitis to left lower leg Hematologic/Lymphatic: No symptoms reported Neurological/Psychological: No symptoms reported -: Yes All other systems reviewed and negative Physical Exam - Vital signs Vitals: Temp Pulse Resp BP Pulse Ox 97.5 F 57 L 16 126/65 H 94 05/29/18 11:04 05/29/18 11:04 05/29/18 11:04 05/29/18 11:04 05/29/18 11:04 Interpretation: Normal - General General appearance: Appears well, Alert - HEENT Head: Normocephalic, Atraumatic Eyes: Normal Pupils: PERRL - Respiratory Respiratory status: No respiratory distress Chest status: Nontender Breath sounds: Normal Chest palpation: Normal - Cardiovascular Rhythm: Regular Heart sounds: Normal auscultation Murmur: No - Abdominal Inspection: Normal Distension: No distension Bowel sounds: Normal Tenderness: Nontender Organomegaly: No organomegaly - Back Back: Normal, Nontender - Extremities General upper extremity: Normal inspection, Nontender, Normal color, Normal ROM, Normal temperature General lower extremity: Normal ROM, Normal temperature, Normal weight bearing. No: Estevan's sign Calf: Tender - Front of left lower leg, Other - Front of left lower leg with small lump Ankle: Normal, Nontender Foot: Normal, Nontender - Neurological Neuro grossly intact: Yes Cognition: Normal Orientation: AAOx4 [place] Coma Scale Eye Opening: Spontaneous Ale Coma Scale Verbal: Oriented Ale Coma Scale Motor: Obeys Commands Ale Coma Scale Total: 15 Speech: Normal Motor strength normal: LUE, RUE, LLE, RLE Sensory: Normal - Psychological Associated symptoms: Normal affect, Normal mood - Skin Skin Temperature: Warm Skin Moisture: Dry Skin Color: Normal Course - Re-evaluation Re-evalutation: 05/29/18 14:21 Discussed exam and labs with Dr. Hightower. He recommended placing the patient on Keflex and discharge at home and have follow-up with primary doctor. Patient was given a dose of Keflex in the emergency room and discharged home. The site was cleaned well with Betadine and punctured with a 18-gauge needle. No purulent drainage mild amount of blood return. Bacitracin and dressing applied to the site and patient was discharged home. - Vital Signs Vital signs: Temp Pulse Resp BP Pulse Ox 97.5 F 57 L 16 116/62 99 05/29/18 13:33 05/29/18 13:33 05/29/18 13:33 05/29/18 13:33 05/29/18 13:33 - Laboratory Result Diagrams: 05/29/18 11:38 05/29/18 11:38 Laboratory results interpreted by me: 05/29/18 05/29/18 11:38 11:38 RBC 4.11 L Eosinophils % 13.5 H Absolute Eosinophils 1.0 H Carbon Dioxide 31 H Glucose 125 H Alkaline Phosphatase 167 H - Diagnostic Test Radiology reviewed: Image reviewed, Reports reviewed Discharge - Discharge Clinical Impression: Cellulitis of left anterior lower leg Condition: Stable Disposition: HOME, SELF-CARE Additional Instructions: CELLULITIS: You have an infection of your skin and underlying soft tissues called cellulitis. This is due to bacteria, which can enter through any break in the skin, or even through an irritated hair follicle. Untreated, cellulitis will usually worsen. Antibiotics are required. Usually, warm packs or warm soaks, and elevation of the infected area are recommended. You should start getting better within 24 to 36 hours. Most infections respond quickly to the right medication. Follow-up care is important, however, to check for abscess (boil) formation, unsuspected foreign body, or resistant infection. If you develop fever, chills, or if the area of infection is becoming rapidly more swollen or painful, call the doctor at once. SOAP CLEANSING: Gently wash the wound daily using a mild soap (like Ivory, Phisoderm, Neutrogena). Use warm water, rubbing gently until all debris, ooze, and crusting have been washed from the wound. Allow to dry briefly (about 10 minutes) after cleaning. Repeat this cleansing at least three times a day for the first two days and then once or twice a day. ANTIBIOTIC OINTMENT PROTECTION: Your wounds are such that dressing them is not practical or optional. After cleansing, you should apply a thin coating of antibiotic ointment (Bacitracin, not Neosporin) to the wounds at least three times daily. This lessens infection risk, and may decrease the amount of scarring. Use a q-tip or dull butter knife, not your finger, to apply this ointment. Any debris or ooze which builds up in the ointment should be gently rubbed off with a sterile gauze pad. Harder crusting may need to be gently scrubbed o ff with a clean wash cloth with soap and warm water, perhaps applying a warm, wet wash cloth to the wound for ten minutes first. Development of redness, severe itching, or blistering may mean allergy to the ointment. See the doctor. Cephalexin The antibiotic you've been prescribed is a member of the cephalosporin class. This type of antibiotic covers a wide variety of infections, including those of the skin, lungs, and urinary tract. It's useful for staph infections. This antibiotic is slightly similar to the penicillin family. In rare cases, a person who is allergic to penicillin will also be allergic to this medication. If you have had a severe allergic reaction to penicillin, and have not taken this antibiotic since that time, notify your doctor. Antibiotics which cover many germs ("broad spectrum" antibiotics) are more likely to cause diarrhea or "yeast" infections. Women prone to vaginal yeast problems may suffer an attack after taking this antibiotic. In infants, oral thrush (white spots "stuck" on the cheek) or yeast diaper rash may result. See your doctor if these problems occur. Call at once if you develop itching, hives, shortness of breath, or lightheadedness. FOLLOW-UP CARE: If you have been referred to a physician for follow-up care, call the physicians office for an appointment as you were instructed or within the next two days. If you experience worsening or a significant change in your symptoms, notify the physician immediately or return to the Emergency Department at any time for re-evaluation. Prescriptions: Cephalexin Monohydrate [Keflex 500 mg Capsule] 500 mg PO Q6H 5 Days capsule Forms: Elevated Blood Pressure Referrals: RADHA CHAO MD [Primary Care Provider] - Follow up as needed
[2018-05-29 13:34] VITALS: BP 116/62
== END 2018-05-29 13:35 | disposition home or self-care (01) ==
LOC: ER 10:58
DX: L03.116 Cellulitis of left lower limb (principal); M79.605 Pain in left leg; I50.9 Heart failure, unspecified; I25.10 Atherosclerotic heart disease of native coronary artery without angina pectoris; E78.00 Pure hypercholesterolemia, unspecified; I11.0 Hypertensive heart disease with heart failure; J44.9 Chronic obstructive pulmonary disease, unspecified; I69.954 Hemiplegia and hemiparesis following unspecified cerebrovascular disease affecting left non-dominant side; Z87.442 Personal history of urinary calculi
CPT/HCPCS: 99283; 36415; 87040; 85025; 80053; A9270

== ENCOUNTER 2018-09-15 17:01 | Emergency (ER) | payer MEDICARE, MEDICAID ==
--- NOTE | 2018-09-15 18:16 | ER Document Report ---
ED Medical Screen (RME) - General Chief Complaint: Probable Seizure Stated Complaint: POSSIBLE SEIZURE Time Seen by Provider: 09/15/18 18:07 Primary Care Provider: RADHA CHOA MD [Primary Care Provider] - Follow up as needed TRAVEL OUTSIDE OF THE [place] IN LAST 30 DAYS: No - HPI Patient complains to provider of: Possible seizure Notes: 09/15/18 18:14 Patient here with complaints of possible seizure-like activity. He tells me that he was instructed to come the ER due to some shaking spells that he has been having. Was concerned that he might be having some seizures. The patient has difficulty completely explain this to me in triage. He does have a prior history of a brain tumor that was resected. He states that his doctor wanted him to come in to have a CT of his head. He denies any significant complaints at this time. Exam No distress, nontoxic appearing, occasional tremor and shaking noted, continual consciousness. Nonfocal neurological exam. Plan CBC, CMP, CT head. An initial examination was made on the patient as part of the triage process, and it was determined a more comprehensive evaluation was necessary. Initial labs were ordered and patient was transferred to another provider in the ED who assumed care and finished evaluation and plan. - Related Data Allergies/Adverse Reactions: iodine [Iodine] Allergy (Mild, Verified 09/15/18 17:04) VOMITING Shellfish * [Shellfish] Allergy (Mild, Verified 09/15/18 17:04) VOMITING Past Medical History - Past Medical History Cardiac Medical History: Reports: Hx Congestive Heart Failure, Hx Coronary Artery Disease, Hx Hypercholesterolemia, Hx Hypertension - medicated Denies: Hx Atrial Fibrillation, Hx Heart Attack, Hx Peripheral Vascular Disease, Hx Pulmonary Embolism, Hx Heart Murmur Pulmonary Medical History: Reports: Hx Asthma - COPD, Hx Bronchitis, Hx COPD Denies: Hx Pneumonia, Hx Respiratory Failure, Hx Sleep Apnea, Hx Tuberculosis Neurological Medical History: Reports: 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 Denies: Hx Graves' Disease, Hx Hyperthyroidism Renal/ Medical History: Reports: Hx Kidney Stones. Denies: Hx Benign Prostatic Hyperplasia, Hx End Stage Renal Disease, Hx Peritoneal Dialysis Malignancy Medical History: Denies Hx Leukemia, Denies Hx Lung Cancer GI Medical History: Reports: Hx Gastroesophageal Reflux Disease. Denies: Hx Crohn's Disease, Hx Hepatitis, Hx Hiatal Hernia, Hx Irritable Bowel, Hx Liver Failure, Hx Pancreatitis, Hx Ulcer Musculoskeltal Medical History: Reports Hx Arthritis - gout , Denies Hx Fibromyalgia, Reports Hx Gout, Reports Hx Multiple Sclerosis, Denies Hx Muscular Dystrophy Psychiatric Medical History: Reports: Hx Depression Denies: Hx Bipolar Disorder, Hx Dementia, Hx Post Traumatic Stress Disorder, Hx Schizophrenia Traumatic Medical History: Denies: Hx Fractures Infectious Medical History: Denies: Hx Hepatitis, Hx HIV Past Surgical History: Reports: Hx Orthopedic Surgery - right knee. Denies: Hx Appendectomy, Hx Bowel Surgery, Hx Cholecystectomy, Hx Colostomy, Hx Coronary Artery Bypass Graft, Hx Gastric Bypass Surgery, Hx Herniorrhaphy, Hx Open Heart Surgery, Hx Pacemaker, Hx Tonsillectomy - Immunizations Hx Diphtheria, Pertussis, Tetanus Vaccination: No Physical Exam - Vital signs Vitals: Temp Pulse Resp BP Pulse Ox 97.7 F 57 L 16 128/71 H 93 09/15/18 17:32 09/15/18 17:32 09/15/18 17:32 09/15/18 17:32 09/15/18 17:32 Course - Vital Signs Vital signs: Temp Pulse Resp BP Pulse Ox 97.7 F 57 L 16 128/71 H 93 09/15/18 17:32 09/15/18 17:32 09/15/18 17:32 09/15/18 17:32 09/15/18 17:32 Doctor's Discharge - Discharge Referrals: RADHA CHAO MD [Primary Care Provider] - Follow up as needed
[2018-09-15 19:05] LABS: ABSOLUTE EOSINOPHILS # (AUTO) 1.4 10^3/uL (0.0-0.6); ABSOLUTE LYMPHOCYTES (AUTO) 1.5 10^3/uL (0.5-4.7); ABSOLUTE MONOCYTES (AUTO) 0.6 10^3/uL (0.1-1.4); ABSOLUTE NEUT (AUTO) 3.6 10^3/uL (1.7-8.2); BASOPHILS % (AUTO) 0.5 % (0-2); EOSINOPHILS % (AUTO) 19.9 % (0-6); HEMATOCRIT 41.5 % (37.9-51.0); HEMOGLOBIN 14.4 g/dL (13.5-17.0); LYMPHOCYTES % (AUTO) 20.8 % (13-45); MEAN CORPUSCULAR HEMOGLOBIN 32.3 pg (27.0-33.4); MEAN CORPUSCULAR HGB CONC 34.7 g/dL (32.0-36.0); MEAN CORPUSCULAR VOLUME 93 fl (80-97); MONOCYTES % (AUTO) 8.3 % (3-13); PLATELET COUNT 182 10^3/uL (150-450); RED BLOOD COUNT 4.46 10^6/uL (4.35-5.55); RED CELL DISTRIBUTION WIDTH 13.8 % (11.5-14.0); SEGMENTED NEUTROPHILS % (AUTO) 50.5 % (42-78); TOTAL CELLS COUNTED % (AUTO) 100 %; WHITE BLOOD COUNT 7.1 10^3/uL (4.0-10.5)
[2018-09-15 19:23] LABS: ALANINE AMINOTRANSFERASE 24 U/L (21-72); ALBUMIN 4.2 g/dL (3.5-5.0); ALKALINE PHOSPHATASE 131 U/L (38-126); ANION GAP 8 (5-19); ASPARTATE AMINO TRANSFERASE 17 U/L (17-59); BILIRUBIN,DIRECT 0.3 mg/dL (0.0-0.4); BILIRUBIN,TOTAL 0.6 mg/dL (0.2-1.3); BLOOD UREA NITROGEN 17 mg/dL (7-20); CALCIUM 10.1 mg/dL (8.4-10.2); CARBON DIOXIDE 30 mmol/L (22-30); CHLORIDE 96 mmol/L (98-107); GLUCOSE 133 mg/dL (75-110); POTASSIUM 4.8 mmol/L (3.6-5.0); SODIUM 134.2 mmol/L (137-145)
--- NOTE | 2018-09-15 19:48 | RADIOLOGY REPORT (SQ) ---
EXAM DESCRIPTION: CT HEAD WITHOUT COMPLETED DATE/TIME: 09/15/2018 7:12 pm REASON FOR STUDY: possible seizure COMPARISON: 07/15/2016 and earlier TECHNIQUE: Axial images acquired through the brain without intravenous contrast. Images reviewed wi th bone, brain and subdural windows. Additional sagittal and coronal reconstructions were generated. Images stored on PACS. All CT scanners at this facility use dose modulation, iterative reconstruction, and/or weight based d osing when appropriate to reduce radiation dose to as low as reasonably achievable (ALARA). [facility]: Dose Right [facility]: CareDose [facility]: Dose Right [facility]: Teradose 4D [facility]: [employer] RADIATION DOSE: CT Rad equipment meets quality standard of care and radiation dose reduction techniq ues were employed. CTDIvol: 53.2 mGy. DLP: 1203 mGy-cm. mGy. LIMITATIONS: None. FINDINGS: VENTRICLES: Normal for the patient's age. CEREBRUM: No masses. No hemorrhage. No midline shift. No evidence for acute infarction. Unchanged right frontal parietal lobe encephalomalacia due to prior right frontal craniotomy. Physiologic calc ifications of the basal ganglia. CEREBELLUM: No masses. No hemorrhage. No alteration of density. No evidence for acute infarction. EXTRAAXIAL SPACES: No fluid collections. No masses. ORBITS AND GLOBE: No intra- or extraconal masses. Normal contour of globe without masses. CALVARIUM: No fracture. Large osseous overgrowth of the occiput. Postsurgical changes of the right calvarium. Diffuse sclerosis of the visualized osseous structures, similar to prior. PARANASAL SINUSES: Near complete opacification the right maxillary sinus. Remainder of the visualize d paranasal sinuses are clear. SOFT TISSUES: No mass or hematoma. OTHER: No other significant finding. IMPRESSION: 1. No acute intracranial findings. 2. Unchanged right frontal craniotomy with encephalomalacia of the right frontal parietal lobes. EVIDENCE OF ACUTE STROKE: NO. COMMENT: Quality ID # [id number]: Final reports with documentation of one or more dose reduction techniques (e.g., Automated exposure control, adjustment of the mA and/or kV according to patient size, use of iterative reconstruction technique) TECHNICAL DOCUMENTATION: JOB ID: [id number] [employer]- All Rights Reserved Reading location - IP/workstation name: [email or web address]
--- NOTE | 2018-09-15 19:49 | EKG REPORT ---
SEVERITY:- ABNORMAL ECG - SINUS RHYTHM LEFT ANTERIOR FASCICULAR BLOCK : Confirmed by: Ana Maria Saini MD 15-Sep-2018 19:48:40
--- NOTE | 2018-09-15 20:53 | ER Document Report ---
ED General - General Chief Complaint: Probable Seizure Stated Complaint: POSSIBLE SEIZURE Time Seen by Provider: 09/15/18 18:07 Primary Care Provider: RADHA CHAO MD [Primary Care Provider] - Follow up tomorrow Mode of Arrival: Medic Information source: Patient, [facility] Records Notes: 68-year-old male with hypertension, hyperlipidemia, congestive heart failure, COPD, type 2 diabetes, previous history of brain tumor with a resection in 1994 presents via EMS from home for tremors. Patient states that he has had head shaking and upper extremity shaking since his brain tumor resection in 1994. He states that they are occurring more frequently. He states that he remains awake the entire time does not lose control of his bladder and has no tongue biting. He states today his home health nurse is the one that called EMS. He does state that his primary care physician asked him to repeat a CAT scan of his head. He currently denies headache, blurred vision, nausea, vomiting, chest pain, shortness of breath, abdominal pain, dysuria. TRAVEL OUTSIDE OF THE [place] IN LAST 30 DAYS: No - HPI Onset: Just prior to arrival Quality of pain: No pain Severity: None Associated symptoms: None. denies: Chest pain, Productive cough, Fever, Headache, Leg swelling, Nausea, Vomiting, Shortness of breath, Sweating Exacerbated by: Denies Relieved by: Denies Similar symptoms previously: Yes Recently seen / treated by doctor: Yes - Related Data Allergies/Adverse Reactions: iodine [Iodine] Allergy (Mild, Verified 09/15/18 17:04) VOMITING Shellfish * [Shellfish] Allergy (Mild, Verified 09/15/18 17:04) VOMITING Past Medical History - General Information source: Patient, Emergency Med Personnel, [facility] Records - Social History Smoking Status: Former Smoker Frequency of alcohol use: None Drug Abuse: None Lives with: Family Family History: CAD, DM Patient has suicidal ideation: No Patient has homicidal ideation: No - Past Medical History Cardiac Medical History: Reports: Hx Congestive Heart Failure, Hx Coronary Artery Disease, Hx Hypercholesterolemia, Hx Hypertension - medicated Denies: Hx Atrial Fibrillation, Hx Heart Attack, Hx Peripheral Vascular Disease, Hx Pulmonary Embolism, Hx Heart Murmur Pulmonary Medical History: Reports: Hx Asthma - COPD, Hx Bronchitis, Hx COPD Denies: Hx Pneumonia, Hx Respiratory Failure, Hx Sleep Apnea, Hx Tuberculosis Neurological Medical History: Reports: Hx Cerebrovascular Accident - 1994 left sided weakness/uses cane, Hx Seizures - LAST SEIZURE 6 MTHS AGO, HAS SMALL SEIZURES Endocrine Medical History: Reports: Hx Diabetes Mellitus Type 2, Hx Hypothyroidism. Denies: Hx Graves' Disease, Hx Hyperthyroidism Renal/ Medical History: Reports: Hx Kidney Stones. Denies: Hx Benign Prostatic Hyperplasia, Hx End Stage Renal Disease, Hx Peritoneal Dialysis Malignancy Medical History: Denies Hx Leukemia, Denies Hx Lung Cancer GI Medical History: Reports: Hx Gastroesophageal Reflux Disease. Denies: Hx Crohn's Disease, Hx Hepatitis, Hx Hiatal Hernia, Hx Irritable Bowel, Hx Liver Failure, Hx Pancreatitis, Hx Ulcer Musculoskeletal Medical History: Reports Hx Arthritis - gout , Denies Hx Fibromyalgia, Reports Hx Gout, Reports Hx Multiple Sclerosis, Denies Hx Muscular Dystrophy Psychiatric Medical History: Reports: Hx Depression Denies: Hx Bipolar Disorder, Hx Dementia, Hx Post Traumatic Stress Disorder, Hx Schizophrenia Traumatic Medical History: Denies: Hx Fractures Infectious Medical History: Denies: Hx Hepatitis, Hx HIV Past Surgical History: Reports: Hx Orthopedic Surgery - right knee. Denies: Hx Appendectomy, Hx Bowel Surgery, Hx Cholecystectomy, Hx Colostomy, Hx Coronary Artery Bypass Graft, Hx Gastric Bypass Surgery, Hx Herniorrhaphy, Hx Open Heart Surgery, Hx Pacemaker, Hx Tonsillectomy - Immunizations Hx Diphtheria, Pertussis, Tetanus Vaccination: No Hx Pneumococcal Vaccination: 01/31/13 Review of Systems - Review of Systems Notes: REVIEW OF SYSTEMS: CONSTITUTIONAL : Denies fever, chills, or sweats. Denies recent illness. Denies weight loss, recent hospitalizations. EENT: Denies visual changes, eye pain. Denies sore throat, oral lesions, difficulty swallowing. CARDIOVASCULAR: Denies chest pain. Denies palpitations. Denies lower extremity edema. RESPIRATORY: Denies cough. Denies shortness of breath, wheezing. GASTROINTESTINAL: Denies abdominal pain or distention. Denies nausea, vomiting, or diarrhea. Denies blood in vomitus, stools, or per rectum. Denies black, tarry stools. Denies constipation. GENITOURINARY: Denies difficulty urinating, painful urination, frequency, blood in urine, testicular pain or penile discharge. MUSCULOSKELETAL: Denies back or neck pain or stiffness. Denies joint pain or swelling. SKIN: Denies rash, lesions or sores. HEMATOLOGIC : Denies easy bruising or bleeding. LYMPHATIC: Denies swollen glands. NEUROLOGICAL: Denies confusion or altered mental status. Denies loss of consciousness. Denies dizziness or lightheadedness. Denies headache. Denies weakness or paralysis. Denies problems difficulty with ambulation, slurred speech. Denies sensory loss, numbness, or tingling. Denies seizures. PSYCHIATRIC: Denies anxiety or stress. Denies depression, suicidal ideation, or Physical Exam - Vital signs Vitals: Temp Pulse Resp BP Pulse Ox 97.7 F 57 L 16 128/71 H 93 09/15/18 17:32 09/15/18 17:32 09/15/18 17:32 09/15/18 17:32 09/15/18 17:32 - Notes Notes: PHYSICAL EXAMINATION: GENERAL: Well-appearing, well-nourished and in no acute distress. HEAD: Atraumatic, normocephalic. EYES: Pupils equal round and reactive to light, extraocular movements intact, sclera anicteric, conjunctiva are normal. ENT: Nares patent, oropharynx clear without exudates. Moist mucous membranes. NECK: Normal range of motion, supple without lymphadenopathy LUNGS: Breath sounds clear to auscultation bilaterally and equal. No wheezes rales or rhonchi. HEART: Regular rate and rhythm without murmurs ABDOMEN: Soft, nontender, nondistended abdomen. No guarding, no rebound. No masses appreciated. Musculoskeletal: Normal range of motion, no pitting or edema. No cyanosis. NEUROLOGICAL: Cranial nerves grossly intact. Normal speech, normal gait. Normal sensory, motor exams PSYCH: Normal mood, normal affect. SKIN: Warm, Dry, normal turgor, no rashes or lesions noted. Course - Re-evaluation Re-evalutation: 09/17/18 06:05 Laboratory 09/15/18 09/15/18 09/15/18 18:25 18:25 21:10 WBC 7.1 RBC 4.46 Hgb 14.4 Hct 41.5 MCV 93 MCH 32.3 MCHC 34.7 RDW 13.8 Plt Count 182 Seg Neutrophils % 50.5 Lymphocytes % 20.8 Monocytes % 8.3 Eosinophils % 19.9 H Basophils % 0.5 Absolute Neutrophils 3.6 Absolute Lymphocytes 1.5 Absolute Monocytes 0.6 Absolute Eosinophils 1.4 H Absolute Basophils 0.0 Sodium 134.2 L Potassium 4.8 Chloride 96 L Carbon Dioxide 30 Anion Gap 8 BUN 17 Creatinine 0.59 Est GFR ( Amer) > 60 Est GFR (Non-Af Amer) > 60 Glucose 133 H Calcium 10.1 Total Bilirubin 0.6 Direct Bilirubin 0.3 Neonat Total Bilirubin Not Reportable Neonat Direct Bilirubin Not Reportable Neonat Indirect Bili Not Reportable AST 17 ALT 24 Alkaline Phosphatase 131 H Total Protein 7.0 Albumin 4.2 Urine Color YELLOW Urine Appearance CLEAR Urine pH 5.0 Ur Specific Fords 1.021 Urine Protein NEGATIVE Urine Glucose (UA) NEGATIVE Urine Ketones NEGATIVE Urine Blood NEGATIVE Urine Nitrite NEGATIVE Urine Bilirubin NEGATIVE Urine Urobilinogen 4.0 H Ur Leukocyte Esterase NEGATIVE Urine WBC (Auto) 2 Urine RBC (Auto) 7 Calcium Oxalate Cr Auto FEW Urine Mucus (Auto) RARE Urine Ascorbic Acid [address] 09/15/18 18:13 IMPRESSION: 1. No acute intracranial findings. 2. Unchanged right frontal craniotomy with encephalomalacia of the right frontal parietal lobes. EVIDENCE OF ACUTE STROKE: NO. Temp Pulse Resp BP Pulse Ox 98.0 F 57 L 16 129/65 H 97 09/15/18 22:14 09/15/18 17:32 09/15/18 22:14 09/15/18 22:14 09/15/18 22:14 68-year-old male presents via EMS from home due to concern for seizure-like activity. Upon arrival vitals were reviewed and within normal limits. Patient is alert, awake and states that he has had head shaking and upper extremity shaking since his brain tumor resection in 1994. He states that he is experiencing them more frequently and was told by his primary care physician that he should have a repeat CAT scan of his head. CBC, CMP, urinalysis are un remarkable. CT of the head shows no acute intracranial findings. Patient has had no seizure-like activity during his 4-hour ED course. Patient is requesting discharge home. Patient was evaluated and treated as appropriate for the patient's presenting symptoms and complaint, with consideration of any critical or life threatening conditions that may be associated with their obtained history and exam as noted above. All results were discussed with patient. Patient provided the opportunity to ask questions, and express concerns. Patient was educated on treatments based on their presumed diagnosis as noted above. At this time we will discharge the patient with return precautions and follow-up recommendations. Verbal discharge instructions given a the bedside. Medication warnings reviewed. Patient is in agreement with this plan and has verbalized understanding of return precautions. After careful consideration I feel that that patient can be safely discharged from the emergency department, they were advised to followup with a primary care physician in 2-3 days. Dictation on this chart was performed using voice recognition software and may result in unintended grammatical, spelling, syntax or errors. - Vital Signs Vital signs: Temp Pulse Resp BP Pulse Ox 98.0 F 57 L 16 129/65 H 97 09/15/18 22:14 09/15/18 17:32 09/15/18 22:14 09/15/18 22:14 09/15/18 22:14 - Laboratory Result Diagrams: 09/15/18 18:25 09/15/18 18:25 Laboratory results interpreted by me: 09/15/18 09/15/18 09/15/18 18:25 18:25 21:10 Eosinophils % 19.9 H Absolute Eosinophils 1.4 H Sodium 134.2 L Chloride 96 L Glucose 133 H Alkaline Phosphatase 131 H Urine Urobilinogen 4.0 H Urine Ascorbic Acid 40 H - Diagnostic Test Radiology reviewed: Image reviewed, Reports reviewed - EKG Interpretation by Me EKG shows normal: Sinus rhythm Rate: Normal Rhythm: NSR [place]/QRS: LAHB/LAFB When compared to previous EKG there are: No significant change Discharge - Discharge Clinical Impression: Personal history of traumatic brain injury, Coarse tremors Condition: Good Disposition: HOME, SELF-CARE Additional Instructions: Your lab work and imaging were normal today. I have provided you a copy of both to bring to your primary care physician. Follow up with your [id number] hours for further care or return to the ED IMMEDIATELY if symptoms worsen or you have any concerns. If you cannot afford to follow up with your primary care physician a list of low cost clinics have been provided at the end of your discharge papers as well. Most prescribed medications have multiple side effects. The safest thing to do is when filling your prescription speak to your pharmacist regarding possible i nteractions with your normal home medications and over the counter medications such as Ibuprofen, Tylenol, Benadryl. If you experience any symptoms that cause you discomfort or concern you should discontinue the medication immediately and return to the emergency room or call your primary care physician. Forms: Elevated Blood Pressure Referrals: RADHA CHAO MD [Primary Care Provider] - Follow up tomorrow
[2018-09-15 21:38] LABS: APPEARANCE,URINE CLEAR; BILIRUBIN,URINE NEGATIVE (NEGATIVE); CALCIUM OXALATE CRYSTALS,URINE FEW /HPF; COLOR,URINE YELLOW; GLUCOSE, URINE NEGATIVE (NEGATIVE); KETONES,URINE NEGATIVE (NEGATIVE); LEUKOCYTE ESTERASE,URINE NEGATIVE (NEGATIVE); NITRITE,URINE NEGATIVE (NEGATIVE); PROTEIN,URINE NEGATIVE (NEGATIVE); URINE SPECIFIC GRAVITY 1.021
[2018-09-15 22:22] VITALS: BP 129/65
== END 2018-09-15 23:26 | disposition home or self-care (01) ==
LOC: ER 17:01
DX: R25.1 Tremor, unspecified (principal); Z87.820 Personal history of traumatic brain injury; G93.89 Other specified disorders of brain; I44.4 Left anterior fascicular block; I25.10 Atherosclerotic heart disease of native coronary artery without angina pectoris; I10 Essential (primary) hypertension; J44.9 Chronic obstructive pulmonary disease, unspecified; E11.9 Type 2 diabetes mellitus without complications; Z91.013 Allergy to seafood; Z87.891 Personal history of nicotine dependence
CPT/HCPCS: 36415; 51701; 70450; 80053; 81001; 85025; 93005; 93010; 99284; C1758

== ENCOUNTER → 2018-10-19 | Outpatient (CLI) | payer MEDICARE, MEDICAID ==
[2018-10-19 09:13] LABS: ABSOLUTE LYMPHOCYTES (AUTO) 1.1 10^3/uL (0.5-4.7); ABSOLUTE MONOCYTES (AUTO) 0.5 10^3/uL (0.1-1.4); ABSOLUTE NEUT (AUTO) 4.9 10^3/uL (1.7-8.2); BASOPHILS % (AUTO) 0.4 % (0-2); EOSINOPHILS % (AUTO) 13.6 % (0-6); HEMATOCRIT 39.1 % (37.9-51.0); HEMOGLOBIN 13.3 g/dL (13.5-17.0); LYMPHOCYTES % (AUTO) 14.9 % (13-45); MEAN CORPUSCULAR HEMOGLOBIN 31.3 pg (27.0-33.4); MEAN CORPUSCULAR HGB CONC 34.1 g/dL (32.0-36.0); MEAN CORPUSCULAR VOLUME 92 fl (80-97); MONOCYTES % (AUTO) 6.9 % (3-13); PLATELET COUNT 141 10^3/uL (150-450); RED BLOOD COUNT 4.26 10^6/uL (4.35-5.55); RED CELL DISTRIBUTION WIDTH 14.5 % (11.5-14.0); SEGMENTED NEUTROPHILS % (AUTO) 64.2 % (42-78); TOTAL CELLS COUNTED % (AUTO) 100 %; WHITE BLOOD COUNT 7.6 10^3/uL (4.0-10.5)
[2018-10-19 09:39] LABS: ALANINE AMINOTRANSFERASE 23 U/L (21-72); ALBUMIN 3.7 g/dL (3.5-5.0); ALKALINE PHOSPHATASE 120 U/L (38-126); ANION GAP 9 (5-19); ASPARTATE AMINO TRANSFERASE 15 U/L (17-59); BILIRUBIN,DIRECT 0.2 mg/dL (0.0-0.4); BILIRUBIN,TOTAL 0.4 mg/dL (0.2-1.3); BLOOD UREA NITROGEN 13 mg/dL (7-20); CALCIUM 9.2 mg/dL (8.4-10.2); CARBON DIOXIDE 31 mmol/L (22-30); CHLORIDE 96 mmol/L (98-107); CHOLESTEROL 79.73 mg/dL (0-200); GLUCOSE 108 mg/dL (75-110); POTASSIUM 4.5 mmol/L (3.6-5.0); SODIUM 136.2 mmol/L (137-145); TOTAL PROTEIN 6.2 g/dL (6.3-8.2); TRIGLYCERIDES 132 mg/dL (<150)
[2018-10-19 09:50] LABS: DIRECT LDL 39 mg/dL (<100)
--- NOTE | 2018-10-19 13:10 | RADIOLOGY REPORT (SQ) ---
EXAM DESCRIPTION: FOOT LEFT COMPLETE COMPLETED DATE/TIME: 10/19/2018 10:08 am REASON FOR STUDY: FOOT PAIN (M79.672) S99.922A UNSPECIFIED INJURY OF LEFT FOOT, INITIAL ENCOUNTER M 79.672 PAIN IN LEFT FOOT E11.42 TYPE 2 DIABETES MELLITUS WITH DIABETIC POLYNEUROPATHY COMPARISON: None. NUMBER OF VIEWS: Three views. TECHNIQUE: AP, lateral and oblique radiographic images acquired of the left foot. LIMITATIONS: None. FINDINGS: MINERALIZATION: Normal. BONES: No acute fracture or dislocation. No worrisome bone lesions. JOINTS: Significant degenerative joint changes at the 1st metatarsal-phalangeal joint. SOFT TISSUES: No soft tissue swelling. No foreign body. OTHER: No other significant finding. IMPRESSION: Degenerative joint disease. TECHNICAL DOCUMENTATION: JOB ID: [id number] [employer]- All Rights Reserved Reading location - IP/workstation name: [email or web address]
[2018-10-20 13:37] LABS: CREATININE URINE 99.7 mg/dL (Not Estab.); MICROALBUMIN URINE 7.3 ug/mL (Not Estab.)
== END ==
LOC: RAD 08:32
PROVIDERS: ATTEND Family Medicine Geriatric Medicine
DX: S99.922A Unspecified injury of left foot, initial encounter (principal); M79.672 Pain in left foot; E11.42 Type 2 diabetes mellitus with diabetic polyneuropathy; M19.072 Primary osteoarthritis, left ankle and foot; X58.XXXA Exposure to other specified factors, initial encounter
CPT/HCPCS: 36415; 80053; 80061; 82043; 82570; 84443; 85025

== ENCOUNTER → 2018-11-12 | Outpatient (CLI) | payer MEDICARE, MEDICAID ==
--- NOTE | 2018-11-12 15:03 | RADIOLOGY REPORT (SQ) ---
EXAM DESCRIPTION: CT LUNG CANCER SCREENING COMPLETED DATE/TIME: 11/12/2018 2:07 pm REASON FOR STUDY: HX OF NICOTINE DEPENDENCE (Z87.891) Z87.891 PERSONAL HISTORY OF NICOTINE DEPENDEN CE Has the patient had a Chest CT scan within the past year? Prior CT chest 11/19/2017 Was the patient offered tobacco cessation counseling? No, already quit smoking Was the patient engaged in shared decision making for this test? Yes Does the patient have signs or symptoms of Lung Cancer? No Is the patient a smoker? No How many pack years? greater than 70 How many years since quitting smoking? 8 years Patients age: 68 COMPARISON: None. TECHNIQUE: Low Dose CT scan performed of the chest without intravenous contrast for purposes of scre ening for lung cancer. Images reviewed with lung, soft tissue and bone windows. Reconstructed coron al and sagittal MPR images reviewed. All images stored on PACS. All CT scanners at this facility use dose modulation, iterative reconstruction, and/or weight based d osing when appropriate to reduce radiation dose to as low as reasonably achievable (ALARA). [facility]: Dose Right [facility]: CareDose [facility]: Dose Right [facility]: Teradose 4D [facility]: Cardoc RADIATION DOSE: CT Rad equipment meets quality standard of care and radiation dose reduction techniq ues were employed. CTDIvol: NaN mGy. DLP: 0 mGy-cm. mGy. . LIMITATIONS: None FINDINGS: LUNGS AND PLEURA: No masses or nodules. No pleural effusions or calcifications. No pne umothorax. No scarring or interstitial changes. HILAR AND MEDIASTINAL STRUCTURES: No identified masses. No abnormal nodes. HEART AND VASCULAR STRUCTURES: Mild cardiomegaly No aortic aneurysm. No pericardial effusion. No c ardiac devices. CORONARY ARTERY CALCIFICATIONS: Mild to moderate calcifications. UPPER ABDOMEN, THYROID, BONES, OTHER SOFT TISSUES: No significant findings. IMPRESSION: NO SIGNIFICANT FINDING IN THE LUNGS ON NON-CONTRASTED CHEST CT. OTHER FINDINGS ABOVE. LUNGRADS: LUNGRADS: 1 NEGATIVE. NO NODULES, OR DEFINITELY BENIGN NODULES MODIFIER: NONE RECOMMENDATION: Continue annual screening with LDCT in 12 months. COMMENT: CRITERIA: No lung nodules. Nodules with specific calcifications: Complete, central, popcorn, concentric rings and fat containin g nodules. TECHNICAL DOCUMENTATION: JOB ID: [id number] Quality ID # [id number]: Final reports with documentation of one or more dose reduction techniques (e.g., Au tomated exposure control, adjustment of the mA and/or kV according to patient size, use of iterative reconstruction technique) 2010 [facility] Reading location - IP/workstation name: [email or web address]
== END ==
LOC: RAD 13:43
PROVIDERS: ATTEND Internal Medicine Pulmonary Disease
DX: Z12.2 Encounter for screening for malignant neoplasm of respiratory organs (principal); I25.10 Atherosclerotic heart disease of native coronary artery without angina pectoris; Z87.891 Personal history of nicotine dependence
CPT/HCPCS: G0297

== ENCOUNTER 2018-11-25 20:08 | Emergency (ER) | payer MEDICARE, MEDICAID ==
[2018-11-25 21:00] VITALS: BP 120/60
== END 2018-11-25 21:22 | disposition left against medical advice (07) ==
LOC: ER 20:08
DX: Z53.21 Procedure and treatment not carried out due to patient leaving prior to being seen by health care provider (principal)

== ENCOUNTER 2019-01-22 09:57 | Observation (INO) | payer MEDICARE, MEDICAID ==
[2019-01-22 11:03] LABS: ABSOLUTE EOSINOPHILS # (AUTO) 0.9 10^3/uL (0.0-0.6); ABSOLUTE LYMPHOCYTES (AUTO) 1.1 10^3/uL (0.5-4.7); ABSOLUTE MONOCYTES (AUTO) 0.6 10^3/uL (0.1-1.4); ABSOLUTE NEUT (AUTO) 5.7 10^3/uL (1.7-8.2); ANION GAP 8 (5-19); BASOPHILS % (AUTO) 0.3 % (0-2); BLOOD UREA NITROGEN 10 mg/dL (7-20); CALCIUM 9.2 mg/dL (8.4-10.2); CARBON DIOXIDE 27 mmol/L (22-30); CHLORIDE 93 mmol/L (98-107); EOSINOPHILS % (AUTO) 10.1 % (0-6); GLUCOSE 133 mg/dL (75-110); HEMATOCRIT 37.6 % (37.9-51.0); HEMOGLOBIN 12.9 g/dL (13.5-17.0); LYMPHOCYTES % (AUTO) 13.7 % (13-45); MEAN CORPUSCULAR HEMOGLOBIN 30.9 pg (27.0-33.4); MEAN CORPUSCULAR HGB CONC 34.4 g/dL (32.0-36.0); MEAN CORPUSCULAR VOLUME 90 fl (80-97); MONOCYTES % (AUTO) 7.5 % (3-13); PLATELET COUNT 146 10^3/uL (150-450); POTASSIUM 4.3 mmol/L (3.6-5.0); RED BLOOD COUNT 4.18 10^6/uL (4.35-5.55); RED CELL DISTRIBUTION WIDTH 14.9 % (11.5-14.0); SEGMENTED NEUTROPHILS % (AUTO) 68.4 % (42-78); TOTAL CELLS COUNTED % (AUTO) 100 %; WHITE BLOOD COUNT 8.4 10^3/uL (4.0-10.5)
--- NOTE | 2019-01-22 11:08 | ER Document Report ---
ED General - General Chief Complaint: Headache Stated Complaint: DIZZINESS Time Seen by Provider: 01/22/19 10:21 Primary Care Provider: RADHA CHAO MD [Primary Care Provider] - Follow up as needed Information source: Patient Notes: HPI: Patient is a 68-year-old male with past medical history as recorded including a history of traumatic brain injury requiring surgery with some left-sided intermittent spastic jerks who states that he woke up and he had some face numbness around the mouth. He had previously stated he has had a headache but he denies this to me. He denies any blurry vision, neck pain, trauma, chest pain, palpitations, weakness or numbness. Patient lives alone at home with his aunt who helps take care of him and he is followed by home health. ROS: See HPI All other review of systems reviewed and otherwise negative Reviewed vital signs and nursing note as charted by RN. PHYSICAL EXAM: CONSTITUTIONAL: Alert and does answer questions and follow commands. He is confused about the year in the month which appears to be baseline according to social work at bedside HEAD: Normocephalic; atraumatic EYES: PERRL; full extraocular range of motion; conjunctivae clear, sclerae non- icteric ENT: Normal nose; no rhinorrhea; moist mucous membranes; pharynx without lesions noted NECK: Supple without meningismus; non-tender; no cervical lymphadenopathy, no masses CARD: Regular rate and rhythm; no murmurs; symmetric distal pulses RESP: Normal chest excursion without splinting or tachypnea; breath sounds clear and equal bilaterally ABD/GI: Normal bowel sounds; non-distended; soft, non-tender BACK: The back appears normal and is non-tender to palpation EXT: Normal ROM in all joints; non-tender to palpation; no edema SKIN: No acute lesions noted NEURO: CN 2-12 intact; patient is actually able to lift bilateral legs and bilateral arms without any obvious drift PSYCH: The patient's mood and manner are appropriate. Grooming and personal hygiene are appropriate. TRAVEL OUTSIDE OF THE [place] IN LAST 30 DAYS: No - Related Data Allergies/Adverse Reactions: iodine [Iodine] Allergy (Mild, Verified 09/15/18 17:04) VOMITING Shellfish * [Shellfish] Allergy (Mild, Verified 09/15/18 17:04) VOMITING Past Medical History - Social History Smoking Status: Never Smoker Frequency of alcohol use: None Drug Abuse: None Family History: CAD, DM Patient has suicidal ideation: No Patient has homicidal ideation: No - Past Medical History Cardiac Medical History: Reports: Hx Congestive Heart Failure, Hx Coronary Artery Disease, Hx Hypercholesterolemia, Hx Hypertension - medicated Denies: Hx Atrial Fibrillation, Hx Heart Attack, Hx Peripheral Vascular Disease, Hx Pulmonary Embolism, Hx Heart Murmur Pulmonary Medical History: Reports: Hx Asthma - COPD, Hx Bronchitis, Hx COPD Denies: Hx Pneumonia, Hx Respiratory Failure, Hx Sleep Apnea, Hx Tuberculosis Neurological Medical History: Reports: Hx Cerebrovascular Accident - 1994 left sided weakness/uses cane, Hx Seizures - LAST SEIZURE 6 MTHS AGO, HAS SMALL SEIZURES Endocrine Medical History: Reports: Hx Diabetes Mellitus Type 2, Hx Hypothyroidism. Denies: Hx Graves' Disease, Hx Hyperthyroidism Renal/ Medical History: Reports: Hx Kidney Stones. Denies: Hx Benign Prostatic Hyperplasia, Hx End Stage Renal Disease, Hx Peritoneal Dialysis Malignancy Medical History: Denies Hx Leukemia, Denies Hx Lung Cancer GI Medical History: Reports: Hx Gastroesophageal Reflux Disease. Denies: Hx Crohn's Disease, Hx Hepatitis, Hx Hiatal Hernia, Hx Irritable Bowel, Hx Liver Failure, Hx Pancreatitis, Hx Ulcer Musculoskeletal Medical History: Reports Hx Arthritis - gout , Denies Hx Fibromyalgia, Reports Hx Gout, Reports Hx Multiple Sclerosis, Denies Hx Muscular Dystrophy, Denies Hx Systemic Lupus Erythematosus Psychiatric Medical History: Reports: Hx Depression Denies: Hx Bipolar Disorder, Hx Dementia, Hx Post Traumatic Stress Disorder, Hx Schizophrenia Traumatic Medical History: Denies: Hx Fractures Infectious Medical History: Denies: Hx Hepatitis, Hx HIV Past Surgical History: Reports: Hx Orthopedic Surgery - right knee. Denies: Hx Appendectomy, Hx Bowel Surgery, Hx Cholecystectomy, Hx Colostomy, Hx Coronary Artery Bypass Graft, Hx Gastric Bypass Surgery, Hx Herniorrhaphy, Hx Open Heart Surgery, Hx Pacemaker, Hx Tonsillectomy - Immunizations Hx Diphtheria, Pertussis, Tetanus Vaccination: No Hx Pneumococcal Vaccination: 01/31/13 Physical Exam - Vital signs Vitals: Temp Pulse Resp BP Pulse Ox 98.4 F 50 L 12 151/71 H 95 01/22/19 10:03 01/22/19 10:03 01/22/19 10:03 01/22/19 10:03 01/22/19 10:03 Course - Re-evaluation Re-evalutation: Given the history and physical examination, we will obtain basic labs, CT scan of the head, EKG, cardiac panel, and reassess. Patient currently denies any headache on my exam. He has no fever. I do not detect any facial drooping, facial numbness to the quadrant examination, or weakness of the extremities. 01/22/19 11:08 Labs thus far as recorded. 01/22/19 13:02 CT scan as recorded. No change in exam. Labs as recorded. EKG as recorded. I do see P waves. Patient will be admitted for further evaluation for possible TIA. - Vital Signs Vital signs: Temp Pulse Resp BP Pulse Ox 98.4 F 50 L 12 151/71 H 95 01/22/19 10:03 01/22/19 10:03 01/22/19 10:03 01/22/19 10:03 01/22/19 10:03 - Laboratory Result Diagrams: 01/22/19 10:20 01/22/19 10:20 Laboratory results interpreted by me: 01/22/19 01/22/19 10:20 10:20 RBC 4.18 L Hgb 12.9 L Hct 37.6 L RDW 14.9 H Plt Count 146 L Eos % (Auto) 10.1 H Absolute Eos (auto) 0.9 H Sodium 127.9 L Chloride 93 L Creatinine 0.42 L Glucose 133 H Discharge - Discharge Clinical Impression: Left sided numbness Condition: Fair Disposition: ADMITTED INPATIENT Admitting Provider: Benigno (Hospitalist) Unit Admitted: IMCU Referrals: RADHA CHAO MD [Primary Care Provider] - Follow up as needed
--- NOTE | 2019-01-22 11:37 | RADIOLOGY REPORT (SQ) ---
EXAM DESCRIPTION: CT HEAD WITHOUT COMPLETED DATE/TIME: 01/22/2019 11:23 am REASON FOR STUDY: 14; Facial numbness; h/o left para s/p injury COMPARISON: 09/15/2018 TECHNIQUE: Axial images acquired through the brain without intravenous contrast. Images reviewed wi th bone, brain and subdural windows. Additional sagittal and coronal reconstructions were generated. Images stored on PACS. All CT scanners at this facility use dose modulation, iterative reconstruction, and/or weight based d osing when appropriate to reduce radiation dose to as low as reasonably achievable (ALARA). [facility]: Dose Right [facility]: CareDose [facility]: Dose Right [facility]: Teradose 4D [facility]: Clarassance RADIATION DOSE: CT Rad equipment meets quality standard of care and radiation dose reduction techniq ues were employed. CTDIvol: 48.7 mGy. DLP: 979 mGy-cm.mGy. LIMITATIONS: None. FINDINGS: VENTRICLES: Stable in appearance. Slightly enlarged. CEREBRUM: No masses. No hemorrhage. No midline shift. Areas of low density in the white matter mos t likely due to chronic micro-vascular ischemic change. No evidence for acute infarction. Encephalo malacia in the high right frontal lobe consistent with prior craniotomy. CEREBELLUM: No masses. No hemorrhage. No alteration of density. No evidence for acute infarction. EXTRAAXIAL SPACES: Age-related involutional change. No fluid collections. No masses. ORBITS AND GLOBE: No intra- or extraconal masses. Normal contour of globe without masses. CALVARIUM: No fracture. PARANASAL SINUSES: Chronic right maxillary sinusitis. SOFT TISSUES: No mass or hematoma. OTHER: No other significant finding. IMPRESSION: Postsurgical changes. Chronic small vessel ischemic changes. Old right-sided craniotom y defect. No acute findings. EVIDENCE OF ACUTE STROKE: NO. TECHNICAL DOCUMENTATION: JOB ID: [id number] Quality ID # [id number]: Final reports with documentation of one or more dose reduction techniques (e.g., Au tomated exposure control, adjustment of the mA and/or kV according to patient size, use of iterative reconstruction technique) 2010 [employer]- All Rights Reserved Reading location - IP/workstation name: [email or web address]
--- NOTE | 2019-01-22 12:25 | EKG REPORT ---
SEVERITY:- ABNORMAL ECG - LEFT ANTERIOR FASCICULAR BLOCK NONSPECIFIC T ABNORMALITIES, ANT-LAT LEADS SINUS BRADYCARDIA : Confirmed by: Ana Maria Saini MD 22-Jan-2019 12:24:54
[2019-01-22] MEDS ORDERED: NORMAL SALINE 1000 ML 1,000 ML IV ONE (12:59)
[2019-01-22] MEDS ORDERED: PROMETHAZINE HCL INJ 25 MG/1 ML VIAL IV PRN (13:37)
[2019-01-22] MEDS ORDERED: ONDANSETRON HCL INJ/PF 4 MG/2 ML SDV IV PRN (13:37)
[2019-01-22] MEDS ORDERED: ACETAMINOPHEN 325 MG TABLET PO PRN (13:37)
--- NOTE | 2019-01-22 14:08 | PDOC H&P ---
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 Denies any falls denies any syncope denies any headaches denies any dizzy spells. Patient is also complaining of vomiting twice yesterday greenish off. The work-up is negative except for serum sodium of 128. Medical consult was called to rule out TIA. Past Medical History Cardiac Medical History: Reports: Congestive Heart Failure, Coronary Artery Disease, Hyperlipidema, Hypertension - medicated Denies: Atrial Fibrillation, Myocardial Infarction, Peripheral Vascular Dise ase, Pulmonary Embolism, Heart Murmur Pulmonary Medical History: Reports: Asthma - COPD, Bronchitis, Chronic Obstructive Pulmonary Disease (COPD) Denies: Pneumonia, Respiratory Failure, Sleep Apnea, Tuberculosis Neurological Medical History: Reports: Seizures - LAST SEIZURE 6 MTHS AGO, HAS SMALL SEIZURES Endocrine Medical History: Reports: Diabetes Mellitus Type 2, Hypothyroidism Denies: Hyperthyroidism Renal/ Medical History: Denies: End Stage Renal Disease Malignancy Medical History: Denies: Leukemia, Lung Cancer GI Medical History: Reports: Gastroesophageal Reflux Disease Denies: Crohn's Disease, Hepatitis, Hiatal Hernia Musculoskeltal Medical History: Reports: Arthritis - gout , Gout Denies: Fibromyalgia Psychiatric Medical History: Reports: Depression Denies: Bipolar Disorder, Dementia, Post Traumatic Stress Disorder Hematology: Denies: Anemia, Hemophilia, Sickle Cell Disease Infectious Medical History: Denies: HIV Past Surgical History Past Surgical History: Reports: Orthopedic Surgery - right knee Denies: Appendectomy, Cholecystectomy, Colostomy, Coronary Artery Bypass G raft, Gastric Bypass Surgery, Herniorrhaphy, Pacemaker, Tonsillectomy Social History Smoking Status: Never Smoker Frequency of Alcohol Use: None Hx Recreational Drug Use: Yes Drugs: None Hx Prescription Drug Abuse: No - Advance Directive Resuscitation Status: Full Code Family History Family History: CAD, DM Parental Family History Reviewed: Yes - Mary Alice history of hypertension diabetes mellitus Children Family History Reviewed: Yes Sibling(s) Family History Reviewed.: Yes Medication/Allergy Home Medications: Amlodipine Besylate [Norvasc 5 mg Tablet] 5 mg PO DAILY 04/17/11 Divalproex Sodium [Depakote ER 500 mg Tab.sr] 500 mg PO BID 04/17/11 Escitalopram Oxalate [Lexapro] 20 mg PO DAILY 04/17/11 Metformin HCl [Glucophage 500 mg Tablet] 500 mg PO QPM 04/17/11 Potassium Chloride [Klor-Con 10 Meq Capsule ER] 10 meq PO DAILY 04/17/11 Furosemide [Lasix] 40 mg PO DAILY 05/27/15 Levothyroxine Sodium 50 mcg PO QAM 05/27/15 Montelukast Sodium 10 mg PO QPM 05/27/15 Trazodone HCl 100 mg PO QHS 05/27/15 Albuterol Sulfate [Proair HFA Inhalation Aerosol 8.5 gm MDI] 2 puff IH DAILY 05/28/15 Aspirin 81 mg PO DAILY 05/28/15 Cetirizine HCl [Zyrtec] 10 mg PO DAILY PRN 05/28/15 Cyanocobalamin (Vitamin B-12) [Vitamin B-12] 500 mcg PO DAILY 05/28/15 Lorazepam [Ativan 0.5 mg Tablet] 0.5 mg PO BID 05/28/15 Acetaminophen with Codeine [Acetaminophen-Cod #4 Tablet] 1 tab PO QHS PRN 05/29/15 Lorazepam [Ativan 0.5 mg Tablet] 1 mg PO QHS 05/29/15 Methocarbamol 500 mg PO Q8H 05/29/15 Nitroglycerin [Nitrostat 0.4 mg (1/150 Gr) Tabs 25/Bottle] 0.4 mg SL Q5M PRN 05/29/15 Apixaban [Eliquis 2.5 mg Tablet] 2.5 mg PO BID #60 tablet 05/30/15 Levofloxacin [Levaquin 750 mg Tablet] 750 mg PO DAILY #3 tablet 05/30/15 Metoprolol Succinate [Toprol Xl 50 mg Tab.sr] 50 mg PO DAILY #30 tab.sr.24h 05/30/15 Cephalexin Monohydrate [Keflex 500 mg Capsule] 500 mg PO Q6H 5 Days capsule 05/29/18 Allergies/Adverse Reactions: iodine [Iodine] Allergy (Mild, Verified 09/15/18 17:04) VOMITING Shellfish * [Shellfish] Allergy (Mild, Verified 09/15/18 17:04) VOMITING Review of Systems Constitutional: ABSENT: fatigue, fever(s), headache(s), night sweats, weakness Eyes: ABSENT: visual disturbances Ears: ABSENT: hearing changes Nose, Mouth, and Throat: ABSENT: sore throat Cardiovascular: ABSENT: dyspnea on exertion, orthropnea, palpitations Respiratory: ABSENT: dyspnea, hemoptysis Gastrointestinal: PRESENT: nausea, vomiting Integumentary: ABSENT: rash, wounds Neurological: PRESENT: focal weakness Psychiatric: ABSENT: anxiety, depression, homidical ideation, suicidal ideation Physical Exam Vital Signs: Temp Pulse Resp BP Pulse Ox 98.4 F 50 L 12 151/71 H 95 01/22/19 10:03 01/22/19 10:03 01/22/19 10:03 01/22/19 10:03 01/22/19 10:03 Intake & Output 01/21/19 01/22/19 01/23/19 06:59 06:59 06:59 Weight 101.151 kg General appearance: PRESENT: no acute distress, morbidly obese Head exam: PRESENT: atraumatic Eye exam: PRESENT: PERRLA Mouth exam: PRESENT: moist, tongue midline Teeth exam: PRESENT: poor dentation Neck exam: ABSENT: carotid bruit, JVD, lymphadenopathy, thyromegaly Respiratory exam: PRESENT: decreased breath sounds Cardiovascular exam: PRESENT: RRR. ABSENT: diastolic murmur, rubs, systolic murmur GI/Abdominal exam: PRESENT: ascites Rectal exam: PRESENT: deferred Neurological exam: PRESENT: alert, awake, oriented to person, oriented to place, oriented to time, oriented to situation, CN II-XII grossly intact. ABSENT: motor sensory deficit Psychiatric exam: PRESENT: appropriate affect, normal mood. ABSENT: homicidal ideation, suicidal ideation Results Laboratory Results: 01/22/19 10:20 01/22/19 10:20 01/22/19 01/22/19 10:20 10:20 WBC 8.4 RBC 4.18 L Hgb 12.9 L Hct 37.6 L MCV 90 MCH 30.9 MCHC 34.4 RDW 14.9 H Plt Count 146 L Seg Neutrophils % 68.4 Sodium 127.9 L Potassium 4.3 Chloride 93 L Carbon Dioxide 27 Anion Gap 8 BUN 10 Creatinine 0.42 L Est GFR ( Amer) > 60 Glucose 133 H Calcium 9.2 01/22/19 10:20 Troponin I < 0.012 Impressions: Head CT 01/22/19 10:33 IMPRESSION: Postsurgical changes. Chronic small vessel ischemic changes. Old right-sided craniotomy defect. No acute findings. EVIDENCE OF ACUTE STROKE: NO. Assessment and Plan - Diagnosis (1) Left sided numbness Is this a current diagnosis for this admission?: No Plan: 01/22/2019-patient is going to be admitted to [facility] stroke core measures will be implemented to do the MRI of the brain without contrast and carotid Doppler today. Patient tolerating the apixaban GI prophylaxis was requested. (2) Congestive heart failure Qualifiers: Qualified Code(s): I50.9 - Heart failure, unspecified Is this a current diagnosis for this admission?: No Plan: 01/22/2019-patient has history of congestive heart failure euvolemic. Chest bilateral entry was good very minimal crepitations at the bases. No pedal edema. Based on the history most likely has a chronic systolic heart failure. (3) Diabetes mellitus Qualifiers: Diabetes mellitus type: type 2 Diabetes mellitus complication status: without complication Qualified Code(s): E11.9 - Type 2 diabetes mellitus without complications Is this a current diagnosis for this admission?: No Plan: 01/22/2019-patient has history of type 2 diabetes mellitus with latest blood sugar of 133. To start him on insulin sliding scale before meals and at bedtime and request for hemoglobin A1c. Dietary consult was requested. (4) Hypertension Qualifiers: Hypertension type: essential hypertension Qualified Code(s): I10 - Essential (primary) hypertension Is this a current diagnosis for this admission?: No Plan: 07/25/2018-patient has history of hypertension the blood pressure today is 151/71. Plan is to restart his home medications. (5) History of CVA with residual deficit Is this a current diagnosis for this admission?: No Plan: 01/22/2019-patient has history of CVA with a left upper arm weakness. (6) Hyponatremia Is this a current diagnosis for this admission?: Yes Plan: 01/22/2019-patient serum sodium is 128. Hyponatremia be secondary to nausea and vomiting's. Plan is to closely monitor his labs. (7) Nausea & vomiting Is this a current diagnosis for this admission?: Yes Plan: 01/22/2019-patient came in with complaints of abdominal pain nausea and vomitings due to the pain abdominal CT today. And to start him on Zofran 4 mg IV every 4 as needed for nausea vomiting. - Time Time Spent with patient: 25-34 minutes Medications reviewed and adjusted accordingly: Yes Anticipated discharge: Home with Homehealth
[2019-01-22] MEDS ORDERED: DEXTROSE 40% GEL 15 GM TUBE PO PRN ×2 (14:10)
[2019-01-22] MEDS ORDERED: DEXTROSE 50%-WATER 25 GM/50 ML DISP.SYRIN IV PRN ×2 (14:10)
[2019-01-22] MEDS ORDERED: GLUCAGON,HUMAN RECOMB 1 MG INJ IM PRN (14:10)
[2019-01-22 15:19] LABS: CREATINE KINASE MB 1.32 ng/mL (<4.55)
[2019-01-22 15:22] LABS: TROPONIN I < 0.012 ng/mL
--- NOTE | 2019-01-22 16:26 | RADIOLOGY REPORT (SQ) ---
EXAM DESCRIPTION: CT ABD/PELVIS NO ORAL OR IV COMPLETED DATE/TIME: 01/22/2019 4:06 pm REASON FOR STUDY: abd pain COMPARISON: None. TECHNIQUE: CT scan of the abdomen and pelvis performed without intravenous or oral contrast. Images reviewed with lung, soft tissue, and bone windows. Reconstructed coronal and sagittal MPR images revi ewed. All images stored on PACS. All CT scanners at this facility use dose modulation, iterative reconstruction, and/or weight based d osing when appropriate to reduce radiation dose to as low as reasonably achievable (ALARA). [facility]: Dose Right [facility]: CareDose [facility]: Dose Right [facility]: Teradose 4D [facility]: Smart Technologies RADIATION DOSE: CT Rad equipment meets quality standard of care and radiation dose reduction techniq ues were employed. CTDIvol: 16.6 mGy. DLP: 991 mGy-cm.mGy. LIMITATIONS: None. FINDINGS: LOWER CHEST: There is pleural thickening in the right base minimal right basilar atelectas is. NON-CONTRASTED LIVER, SPLEEN, ADRENALS: Evaluation limited by lack of IV contrast. No identified sign ificant masses. PANCREAS: No masses. No peripancreatic inflammatory changes. GALLBLADDER: Not visualized. There appears to be a clip in the gallbladder although history indicate s no prior surgery. RIGHT KIDNEY AND URETER: No suspicious masses. Assessment limited by lack of IV contrast. Small non obstructing stones. No hydronephrosis or hydroureter. LEFT KIDNEY AND URETER: No suspicious masses. Assessment limited by lack of IV contrast. Small nono bstructing stones. No hydronephrosis or hydroureter. AORTA AND RETROPERITONEUM: No aneurysm. No retroperitoneal masses or adenopathy. BOWEL AND PERITONEAL CAVITY: Dilated colon. Numerous diverticuli. No acute diverticulitis. APPENDIX: Normal. PELVIS, BLADDER, AND ABDOMINAL WALL:Distended bladder. BONES: No significant findings. OTHER: No other significant finding. IMPRESSION: 1. Markedly distended bladder. 2. Moderate constipation. Numerous diverticuli. No acute diverticulitis. There is mild colonic di stention. COMMENT: Quality ID # [id number]: Final reports with documentation of one or more dose reduction techniques (e.g., Automated exposure control, adjustment of the mA and/or kV according to patient size, use of iterative reconstruction technique) TECHNICAL DOCUMENTATION: JOB ID: [id number]- All Rights Reserved Reading location - IP/workstation name: [email or web address]
--- NOTE | 2019-01-22 18:38 | RADIOLOGY REPORT (SQ) ---
EXAM DESCRIPTION: MRI HEAD WITHOUT COMPLETED DATE/TIME: 01/22/2019 6:00 pm REASON FOR STUDY: facial numbess COMPARISON: 07/15/2016 TECHNIQUE: Multiplanar imaging includes non-contrasted T1, T2, FLAIR, and diffusion with ADC map seq uences. Images stored on PACS. LIMITATIONS: None. FINDINGS: ANATOMY: Normal vascular flow voids. Pituitary fossa normal. CSF SPACES: Atrophy induced prominence of ventricles and CSF spaces. CEREBRUM: High signal intensity lesions scattered throughout the white matter on FLAIR imaging with d istribution suggesting micro-vascular ischemic changes. No evidence of hemorrhage or extraaxial flui d collection. Similar encephalomalacia and postsurgical changes in the right frontal-parietal lobe. No evidence for recurrent mass or significant interval change. POSTERIOR FOSSA: No signal alteration. No hemorrhage. No edema, masses or mass effect. Internal norma tory canals, cerebello-pontine angles, mastoids normal. DIFFUSION IMAGING: Negative for acute or sub-acute infarction. ORBITS: No masses. Globes normal. PARANASAL SINUSES: Right maxillary mucous retention cysts. The. OTHER: Similar postsurgical changes in the right frontal bone. IMPRESSION: Similar encephalomalacia and postsurgical changes in the right frontal-parietal lobe. No evidence for recurrent mass or significant interval change. Negative for acute or sub-acute infarc tion. EVIDENCE OF ACUTE STROKE: NO. TECHNICAL DOCUMENTATION: JOB ID: [id number] [id number] 2010 [employer]- All Rights Reserved Reading location - IP/workstation name: [email or web address]
[2019-01-22 19:38] LABS: APPEARANCE,URINE CLEAR; BILIRUBIN,URINE NEGATIVE (NEGATIVE); COLOR,URINE YELLOW; GLUCOSE, URINE NEGATIVE (NEGATIVE); KETONES,URINE NEGATIVE (NEGATIVE); LEUKOCYTE ESTERASE,URINE NEGATIVE (NEGATIVE); NITRITE,URINE NEGATIVE (NEGATIVE); PROTEIN,URINE NEGATIVE (NEGATIVE); URINE SPECIFIC GRAVITY 1.008; UROBILINOGEN,URINE NEGATIVE mg/dL (<2.0)
[2019-01-22] MEDS: INSULIN REG, HUMAN 100 UNIT/ML 3 ML VIAL (PYX) SUBCUT SCH ×2 (20:03→21:23)
[2019-01-22 20:14] LABS: URINE AMPHETAMINES SCREEN NEGATIVE; URINE BARBITURATES SCREEN NEGATIVE; URINE BENZODIAZEPINES SCREEN NEGATIVE; URINE COCAINE SCREEN NEGATIVE; URINE MARIJUANA (THC) SCREEN NEGATIVE; URINE METHADONE SCREEN NEGATIVE; URINE PHENCYCLIDINE SCREEN NEGATIVE
[2019-01-22 20:34] LABS: CREATINE KINASE MB 1.56 ng/mL (<4.55)
[2019-01-22 20:36] LABS: TROPONIN I < 0.012 ng/mL
[2019-01-22] MEDS: PANTOPRAZOLE SODIUM 40 MG TABLET.DR PO SCH (22:59)
--- NOTE | 2019-01-23 01:04 | RADIOLOGY REPORT (SQ) ---
CLINICAL HISTORY: tia COMPARISON: None. TECHNIQUE: US CAROTID DOPPLER BILATERAL on 01/22/2019 12:00 AM CDT FINDINGS: Right side: Peak systolic velocities are as follows: Proximal CCA 91, distal CCA 59, proximal ICA 66, distal ICA 70, ECA 90 cm/s. ICA/CCA ratio 1.2. Vertebral artery is not well seen. Left side: There is mild plaque at the carotid bulb and proximal ICA. Peak systolic velocities are as follows: Proximal CCA 77, distal CCA 70, proximal ICA 59, distal ICA 80, ECA 77 cm/s. ICA to CCA ratio is 1.1. Vertebral artery flow is antegrade. IMPRESSION: Less than 50% stenosis of the bilateral internal carotid arteries.
[2019-01-23 05:21] LABS: ABSOLUTE LYMPHOCYTES (AUTO) 1.6 10^3/uL (0.5-4.7); ABSOLUTE MONOCYTES (AUTO) 0.6 10^3/uL (0.1-1.4); ABSOLUTE NEUT (AUTO) 4.2 10^3/uL (1.7-8.2); BASOPHILS % (AUTO) 0.4 % (0-2); EOSINOPHILS % (AUTO) 13.8 % (0-6); HEMATOCRIT 37.2 % (37.9-51.0); HEMOGLOBIN 12.6 g/dL (13.5-17.0); LYMPHOCYTES % (AUTO) 21.2 % (13-45); MEAN CORPUSCULAR HEMOGLOBIN 30.4 pg (27.0-33.4); MEAN CORPUSCULAR HGB CONC 33.9 g/dL (32.0-36.0); MEAN CORPUSCULAR VOLUME 90 fl (80-97); MONOCYTES % (AUTO) 8.4 % (3-13); PLATELET COUNT 169 10^3/uL (150-450); RED BLOOD COUNT 4.15 10^6/uL (4.35-5.55); RED CELL DISTRIBUTION WIDTH 14.5 % (11.5-14.0); SEGMENTED NEUTROPHILS % (AUTO) 56.2 % (42-78); TOTAL CELLS COUNTED % (AUTO) 100 %; WHITE BLOOD COUNT 7.5 10^3/uL (4.0-10.5)
[2019-01-23 05:49] LABS: ALBUMIN 3.6 g/dL (3.5-5.0); ALKALINE PHOSPHATASE 134 U/L (38-126); ANION GAP 7 (5-19); ASPARTATE AMINO TRANSFERASE 18 U/L (17-59); BILIRUBIN,DIRECT 0.4 mg/dL (0.0-0.4); BLOOD UREA NITROGEN 9 mg/dL (7-20); CARBON DIOXIDE 28 mmol/L (22-30); CHLORIDE 96 mmol/L (98-107); CHOLESTEROL 61.99 mg/dL (0-200); GLUCOSE 105 mg/dL (75-110); POTASSIUM 3.5 mmol/L (3.6-5.0); TOTAL PROTEIN 6.2 g/dL (6.3-8.2); TRIGLYCERIDES 74 mg/dL (<150)
[2019-01-23 06:03] LABS: DIRECT LDL < 30 mg/dL (<100)
[2019-01-23] MEDS: PANTOPRAZOLE SODIUM 40 MG TABLET.DR PO SCH ×2 (06:11→16:23)
[2019-01-23] MEDS: INSULIN REG, HUMAN 100 UNIT/ML 3 ML VIAL (PYX) SUBCUT SCH ×4 (08:26→21:02)
[2019-01-23] MEDS ORDERED: ENOXAPARIN SODIUM INJ 40 MG/0.4 ML DISP.SYRIN SUBCUT SCH (10:00)
[2019-01-23] MEDS: ENOXAPARIN SODIUM INJ 40 MG/0.4 ML DISP.SYRIN SUBCUT SCH (10:22)
[2019-01-23 13:13] LABS: CREATINE KINASE MB 1.28 ng/mL (<4.55); TROPONIN I < 0.012 ng/mL
[2019-01-23] MEDS: LORAZEPAM 1 MG TABLET PO PRN ×2 (13:16→22:13)
--- NOTE | 2019-01-23 16:20 | PDOC PROGRESS REPORT ---
Subjective Progress Note for:: 01/23/19 Subjective:: This is 68 years old male patient with past medical history of prostate CA in remission, seizure disorder, type 2 diabetes mellitus, hypothyroidism, congestive heart failure, coronary artery disease, hyperlipidemia, hypertension noted with chief complaint of right facial numbness. His blood work is unremarkable except mild hyponatremia with sodium of 1.8. His MRI and CT scan of the head are negative. This morning patient seen while resting in bed. Patient developed urinary retention and for that [place] catheter inserted. If patient able to void by himself is potential discharge for tomorrow. Reason For Visit: TIA Physical Exam Vital Signs: Temp Pulse Resp BP Pulse Ox 97.6 F 49 L 16 137/45 H 98 01/23/19 11:56 01/23/19 13:47 01/23/19 12:00 01/23/19 12:00 01/23/19 12:00 Intake & Output 01/22/19 01/23/19 01/24/19 06:59 06:59 06:59 Intake Total 1520 Output Total 1675 Balance -155 Weight 102.6 kg General appearance: PRESENT: no acute distress Head exam: PRESENT: atraumatic Teeth exam: PRESENT: edentulous Respiratory exam: PRESENT: clear to auscultation rosey. ABSENT: rales, rhonchi, wheezes Cardiovascular exam: PRESENT: RRR. ABSENT: diastolic murmur, rubs, systolic murmur GI/Abdominal exam: PRESENT: normal bowel sounds, soft. ABSENT: distended, guarding, mass, organolmegaly, rebound, tenderness Neurological exam: PRESENT: alert, awake, oriented to person, oriented to place, oriented to time, oriented to situation Results Laboratory Results: 01/23/19 04:42 01/23/19 04:42 01/22/19 01/23/19 01/23/19 18:00 04:42 04:42 WBC 7.5 RBC 4.15 L Hgb 12.6 L Hct 37.2 L MCV 90 MCH 30.4 MCHC 33.9 RDW 14.5 H Plt Count 169 Seg Neutrophils % 56.2 Sodium 131.4 L Potassium 3.5 L Chloride 96 L Carbon Dioxide 28 Anion Gap 7 BUN 9 Creatinine 0.48 L Est GFR ( Amer) > 60 Glucose 105 Calcium 9.0 Magnesium 1.9 Total Bilirubin 1.0 AST 18 Alkaline Phosphatase 134 H Total Protein 6.2 L Albumin 3.6 Triglycerides 74 Cholesterol 61.99 LDL Cholesterol Direct < 30 VLDL Cholesterol 15.0 HDL Cholesterol 35 L TSH Urine Color YELLOW Urine Appearance CLEAR Urine pH 6.0 Ur Specific Olden 1.008 Urine Protein NEGATIVE Urine Glucose (UA) NEGATIVE Urine Ketones NEGATIVE Urine Blood NEGATIVE Urine Nitrite NEGATIVE Ur Leukocyte Esterase NEGATIVE Urine WBC (Auto) 1 Urine RBC (Auto) 1 01/23/19 04:42 WBC RBC Hgb Hct MCV MCH MCHC RDW Plt Count Seg Neutrophils % Sodium Potassium Chloride Carbon Dioxide Anion Gap BUN Creatinine Est GFR ( Amer) Glucose Calcium Magnesium Total Bilirubin AST Alkaline Phosphatase Total Protein Albumin Triglycerides Cholesterol LDL Cholesterol Direct VLDL Cholesterol HDL Cholesterol TSH 1.21 Urine Color Urine Appearance Urine pH Ur Specific Olden Urine Protein Urine Glucose (UA) Urine Ketones Urine Blood Urine Nitrite Ur Leukocyte Esterase Urine WBC (Auto) Urine RBC (Auto) 01/22/19 01/22/19 01/22/19 10:20 14:29 14:29 Creatine Kinase 32 L CK-MB (CK-2) 1.32 Troponin I < 0.012 < 0.012 NT-Pro-B Natriuret Pep 01/22/19 01/22/19 01/23/19 19:36 19:36 01:14 Creatine Kinase 25 L 22 L CK-MB (CK-2) 1.56 Troponin I < 0.012 NT-Pro-B Natriuret Pep 01/23/19 01/23/19 01:14 04:42 Creatine Kinase CK-MB (CK-2) 1.28 Troponin I < 0.012 NT-Pro-B Natriuret Pep 297 Impressions: Abdomen/Pelvis CT 01/22/19 00:00 IMPRESSION: 1. Markedly distended bladder. 2. Moderate constipation. Numerous diverticuli. No acute diverticulitis. There is mild colonic distention. Carotid Doppler Study 01/22/19 00:00 IMPRESSION: Less than 50% stenosis of the bilateral internal carotid arteries. Head MRI 01/22/19 00:00 IMPRESSION: Similar encephalomalacia and postsurgical changes in the right frontal-parietal lobe. No evidence for recurrent mass or significant interval change. Negative for acute or sub-acute infarction. EVIDENCE OF ACUTE STROKE: NO. Head CT 01/22/19 10:33 IMPRESSION: Postsurgical changes. Chronic small vessel ischemic changes. Old right-sided craniotomy defect. No acute findings. EVIDENCE OF ACUTE STROKE: NO. Assessment and Plan - Diagnosis (1) TIA (transient ischemic attack) Is this a current diagnosis for this admission?: Yes Plan: Patient presented with facial numbness. CT and MRI of the head are negative (2) Acute urinary retention Is this a current diagnosis for this admission?: Yes Plan: Patient has history of prostate cancer. [place] is inserted and waiting if patient is able to urinate by himself. (3) Hyponatremia Is this a current diagnosis for this admission?: Yes Plan: Improving (4) Seizure disorder Is this a current diagnosis for this admission?: Yes Plan: In remission (5) Type 2 diabetes mellitus Is this a current diagnosis for this admission?: Yes Plan: Continue current regimen (6) COPD (chronic obstructive pulmonary disease) Qualifiers: Emphysema type: unspecified Is this a current diagnosis for this admission?: Yes Plan: PRN bronchodilators (7) Coronary artery disease Is this a current diagnosis for this admission?: Yes Plan: No anginal symptoms
[2019-01-24] MEDS: PANTOPRAZOLE SODIUM 40 MG TABLET.DR PO SCH (05:55)
[2019-01-24] MEDS: INSULIN REG, HUMAN 100 UNIT/ML 3 ML VIAL (PYX) SUBCUT SCH ×2 (09:29→12:16)
[2019-01-24] MEDS: ENOXAPARIN SODIUM INJ 40 MG/0.4 ML DISP.SYRIN SUBCUT SCH (09:30)
--- NOTE | 2019-01-24 10:48 | PDOC DISCHARGE SUMMARY ---
General - Admit/Disc Date/PCP Admission Date/Primary Care Provider: 01/22/19 13:27 RADHA CHAO MD Discharge Date: 01/24/19 - Discharge Diagnosis (1) TIA (transient ischemic attack) Is this a current diagnosis for this admission?: Yes (2) Acute urinary retention Is this a current diagnosis for this admission?: Yes (3) Hyponatremia Is this a current diagnosis for this admission?: Yes (4) Seizure disorder Is this a current diagnosis for this admission?: Yes (5) Type 2 diabetes mellitus Is this a current diagnosis for this admission?: Yes (6) COPD (chronic obstructive pulmonary disease) Is this a current diagnosis for this admission?: Yes (7) Coronary artery disease Is this a current diagnosis for this admission?: Yes - Additional Information Resuscitation Status: Full Code Home Medications: Amlodipine Besylate [Norvasc 5 mg Tablet] 5 mg PO DAILY 01/22/19 Aspirin [Adult Low Dose Aspirin EC] 81 mg PO DAILY 01/22/19 Cetirizine HCl [Zyrtec] 10 mg PO DAILY 01/22/19 Cyanocobalamin (Vitamin B-12) [B-12] 500 mcg PO DAILY 01/22/19 Duloxetine HCl [Cymbalta] 30 mg PO BID 01/22/19 Eslicarbazepine Acetate [Aptiom] 400 mg PO QHS 01/22/19 Furosemide [Lasix 40 mg Tablet] 40 mg PO DAILY 01/22/19 Levothyroxine Sodium [Synthroid 50 Mcg Tablet] 50 mcg PO DAILY 01/22/19 Meloxicam [Mobic] 7.5 mg PO DAILY 01/22/19 Metformin HCl 500 mg PO DAILY 01/22/19 Metoprolol Succinate [Toprol Xl 50 mg Tab.sr] 50 mg PO DAILY 01/22/19 History of Present Illness History of Present Illness: ZHANNA HURTADO is a 68 year old male with history of 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 Denies any falls denies any syncope denies any headaches denies any dizzy spells. Patient is also compl aining of vomiting twice yesterday greenish off. The work-up is negative except for serum sodium of 128. Medical consult was called to rule out TIA. Hospital Course Hospital Course: This is 68 years old male patient with past medical history of prostate CA in remission, seizure disorder, type 2 diabetes mellitus, hypothyroidism, congestive heart failure, coronary artery disease, hyperlipidemia, hypertension noted with chief complaint of right facial numbness. His blood work is unremarkable except mild hyponatremia with sodium of 1.8. His MRI and CT scan of the head are negative. This morning patient seen while resting in bed. Patient developed urinary retention and for that [place] catheter inserted. If patient able to void by himself is potential discharge for tomorrow. 01/24/2019: This morning patient seen and examined while he is resting in bed comfortably. He is awake alert oriented. He is not in pain distress. His catheter removed and patient able to urinate by himself. Since patient has history of prostate CA he is advised to visit his primary urologist. His vital signs and blood works are unremarkable. Patient is stable enough to go home. I will continue all his home medications. Physical Exam Vital Signs: Temp Pulse Resp BP Pulse Ox 97.4 F 61 18 162/74 H 99 01/24/19 08:03 01/24/19 08:03 01/24/19 08:03 01/24/19 08:03 01/24/19 08:03 Intake & Output 01/23/19 01/24/19 01/25/19 06:59 06:59 06:59 Intake Total 1520 695 Output Total 1675 300 Balance -155 395 Weight 102.6 kg 102.8 kg General appearance: PRESENT: no acute distress Head exam: PRESENT: atraumatic Mouth exam: PRESENT: moist Teeth exam: PRESENT: edentulous Respiratory exam: PRESENT: clear to auscultation rosey. ABSENT: rales, rhonchi, wheezes Cardiovascular exam: PRESENT: RRR. ABSENT: diastolic murmur, rubs, systolic murmur GI/Abdominal exam: PRESENT: normal bowel sounds, soft. ABSENT: distended, guarding, mass, organolmegaly, rebound, tenderness Neurological exam: PRESENT: alert, awake, oriented to person, oriented to place Results Laboratory Results: 01/23/19 04:42 01/23/19 04:42 01/22/19 01/22/19 01/22/19 10:20 14:29 14:29 Creatine Kinase 32 L CK-MB (CK-2) 1.32 Troponin I < 0.012 < 0.012 NT-Pro-B Natriuret Pep 01/22/19 01/22/19 01/23/19 19:36 19:36 01:14 Creatine Kinase 25 L 22 L CK-MB (CK-2) 1.56 Troponin I < 0.012 NT-Pro-B Natriuret Pep 01/23/19 01/23/19 01:14 04:42 Creatine Kinase CK-MB (CK-2) 1.28 Troponin I < 0.012 NT-Pro-B Natriuret Pep 297 Impressions: Abdomen/Pelvis CT 01/22/19 00:00 IMPRESSION: 1. Markedly distended bladder. 2. Moderate constipation. Numerous diverticuli. No acute diverticulitis. There is mild colonic distention. Carotid Doppler Study 01/22/19 00:00 IMPRESSION: Less than 50% stenosis of the bilateral internal carotid arteries. Head MRI 01/22/19 00:00 IMPRESSION: Similar encephalomalacia and postsurgical changes in the right frontal-parietal lobe. No evidence for recurrent mass or significant interval change. Negative for acute or sub-acute infarction. EVIDENCE OF ACUTE STROKE: NO. Head CT 01/22/19 10:33 IMPRESSION: Postsurgical changes. Chronic small vessel ischemic changes. Old right-sided craniotomy defect. No acute findings. EVIDENCE OF ACUTE STROKE: NO. Qualifiers - * PATIENT BEING DISCHARGED WITH ANY OF THE FOLLOWING DIAGNOSIS: No Acute Heart Failure - Is this a Heart Failure Patient?: No LVEF < 40%?: No- if no continue to question #3 3. Anticoagulant therapy for permanect/persistent/paraoxysmal Afib or Aflutter: N/A
[2019-01-24 11:30] VITALS: BP 130/71
== END 2019-01-24 12:10 | disposition home or self-care (01) ==
LOC: ER 09:57 → EH 13:27 → INTOOBSV 13:27 → 3S 17:07
PROVIDERS: ADMIT Internal Medicine; ATTEND Internal Medicine
DX: G45.9 Transient cerebral ischemic attack, unspecified (principal); R33.9 Retention of urine, unspecified; E87.1 Hypo-osmolality and hyponatremia; G40.909 Epilepsy, unspecified, not intractable, without status epilepticus; E11.9 Type 2 diabetes mellitus without complications; J44.9 Chronic obstructive pulmonary disease, unspecified; I25.10 Atherosclerotic heart disease of native coronary artery without angina pectoris; I11.0 Hypertensive heart disease with heart failure; I50.9 Heart failure, unspecified; F32.9 Major depressive disorder, single episode, unspecified; M19.90 Unspecified osteoarthritis, unspecified site; E03.9 Hypothyroidism, unspecified; R11.2 Nausea with vomiting, unspecified; E66.01 Morbid (severe) obesity due to excess calories; I69.354 Hemiplegia and hemiparesis following cerebral infarction affecting left non-dominant side; R41.0 Disorientation, unspecified; Z60.2 Problems related to living alone; Z87.820 Personal history of traumatic brain injury; Z79.82 Long term (current) use of aspirin; Z79.899 Other long term (current) drug therapy; Z79.84 Long term (current) use of oral hypoglycemic drugs; Z87.442 Personal history of urinary calculi; Z85.46 Personal history of malignant neoplasm of prostate; Z82.49 Family history of ischemic heart disease and other diseases of the circulatory system
CPT/HCPCS: 93005; 99284; 96375; 96365; 36415 ×2; 82553 ×2; 82962 ×3; 82550 ×2; 83735; 84443; 85025 ×2; 80048; 80053; 81001; 84484 ×2; 80307; 83036; 80061; 83880; 93880; 70551; 70450; 74176; 93010; G0378 ×4; J1650 ×2; A9270; J2550; J3490 ×6; J7030

== ENCOUNTER → 2019-04-05 | Outpatient (CLI) | payer MEDICARE, MEDICAID | LOC: SP 09:33 | PROVIDERS: ATTEND Specialist | DX: R94.31 Abnormal electrocardiogram [ECG] [EKG] (principal) | CPT/HCPCS: 93306 ==

== ENCOUNTER → 2019-04-14 | Outpatient (CLI) | payer MEDICARE, MEDICAID ==
[~2019-04-14] MED LIST: REGADENOSON INJ 0.4 MG/5 ML DISP.SYRIN IV ONE
== END ==
LOC: RAD 06:48
PROVIDERS: ATTEND Specialist
DX: Z01.810 Encounter for preprocedural cardiovascular examination (principal); R94.31 Abnormal electrocardiogram [ECG] [EKG]
CPT/HCPCS: 93017; 78452; A9500; J2785; Q9969

== ENCOUNTER → 2019-05-04 | Outpatient (CLI) | payer MEDICARE, MEDICAID ==
--- NOTE | 2019-05-04 12:53 | RADIOLOGY REPORT (SQ) ---
EXAM DESCRIPTION: RIBS LEFT W/PA CHEST COMPLETED DATE/TIME: 05/04/2019 12:00 pm REASON FOR STUDY: PLEURODYNIA R07.81 PLEURODYNIA COMPARISON: 05/17/2018 TECHNIQUE: Frontal view of the chest and additional views of the left ribs acquired. NUMBER OF VIEWS: Five view. LIMITATIONS: None. FINDINGS: FRONTAL CXR: There is basilar atelectasis. No pneumothorax. RIBS: No displaced rib fractures. No lytic or blastic bony lesions. OTHER: No other significant finding. IMPRESSION: NO PNEUMOTHORAX. NO DISPLACED RIB FRACTURES. COMMENT: SITE OF TRAUMA/COMPLAINT MARKED/STAMP COMPLETED: YES. TECHNICAL DOCUMENTATION: JOB ID: [id number] [employer]- All Rights Reserved Reading location - IP/workstation name: [email or web address]
== END ==
LOC: OD 10:49
PROVIDERS: ATTEND Family Medicine Geriatric Medicine
DX: R07.81 Pleurodynia (principal)

== ENCOUNTER 2019-06-22 06:00 | Day surgery (SDC) | payer MEDICARE, MEDICAID ==
[2019-06-16 10:03] LABS: ABSOLUTE EOSINOPHILS # (AUTO) 0.7 10^3/uL (0.0-0.6); ABSOLUTE LYMPHOCYTES (AUTO) 1.4 10^3/uL (0.5-4.7); ABSOLUTE MONOCYTES (AUTO) 0.6 10^3/uL (0.1-1.4); ABSOLUTE NEUT (AUTO) 5.1 10^3/uL (1.7-8.2); BASOPHILS % (AUTO) 0.4 % (0-2); EOSINOPHILS % (AUTO) 9.1 % (0-6); HEMATOCRIT 39.3 % (37.9-51.0); HEMOGLOBIN 13.6 g/dL (13.5-17.0); LYMPHOCYTES % (AUTO) 17.5 % (13-45); MEAN CORPUSCULAR HEMOGLOBIN 30.8 pg (27.0-33.4); MEAN CORPUSCULAR HGB CONC 34.6 g/dL (32.0-36.0); MEAN CORPUSCULAR VOLUME 89 fl (80-97); MONOCYTES % (AUTO) 7.6 % (3-13); PLATELET COUNT 173 10^3/uL (150-450); RED BLOOD COUNT 4.41 10^6/uL (4.35-5.55); RED CELL DISTRIBUTION WIDTH 14.1 % (11.5-14.0); SEGMENTED NEUTROPHILS % (AUTO) 65.4 % (42-78); TOTAL CELLS COUNTED % (AUTO) 100 %; WHITE BLOOD COUNT 7.7 10^3/uL (4.0-10.5)
[2019-06-16 10:36] LABS: ANION GAP 10 (5-19); BLOOD UREA NITROGEN 14 mg/dL (7-20); CALCIUM 9.2 mg/dL (8.4-10.2); CARBON DIOXIDE 30 mmol/L (22-30); CHLORIDE 94 mmol/L (98-107); GLUCOSE 97 mg/dL (75-110); POTASSIUM 4.6 mmol/L (3.6-5.0)
--- NOTE | 2019-06-16 11:38 | EKG REPORT ---
SEVERITY:- DEFECTIVE ECG - LEFT ANTERIOR FASCICULAR BLOCK BASELINE ARTIFACT.PROBABLE SINUS BRADYCARDIA.REPEAT EKG : Confirmed by: Ana Maria Saini MD 16-Jun-2019 11:37:21
[~2019-06-22 06:00] MED LIST changes: +LACTATED RINGERS 1000 ML IV PRN; +LIDOCAINE 0.5% INJ-PF (5 MG/ML) 50 ML SDV SUBCUT PRN; -REGADENOSON INJ 0.4 MG/5 ML DISP.SYRIN IV ONE
[2019-06-22] MEDS ORDERED: MIDAZOLAM 2 MG/2 ML INJ ONE (07:09)
[2019-06-22] MEDS ORDERED: LIDOCAINE 2% INJ-PF (20 MG/ML) 10 ML AMPUL ONE (07:09)
[2019-06-22] MEDS ORDERED: FENTANYL CITRATE INJ/PF 100 MCG/2 ML AMPUL ONE (07:09)
[2019-06-22] MEDS ORDERED: PROPOFOL INJ 200 MG/20 ML VIAL IV ONE (07:10)
--- NOTE | 2019-06-22 07:17 | EKG REPORT ---
SEVERITY:- ABNORMAL ECG - SINUS RHYTHM WITH PACS FIRST DEGREE AV BLOCK INCOMPLETE LEFT BUNDLE BRANCH BLOCK NONSPECIFIC ST-T CHANGES, DIFFUSE : Confirmed by: Leo Last MD 22-Jun-2019 07:16:44
[2019-06-22] MEDS ORDERED: BUPIVACAINE INJ/PF LIPOSOME/PF 266 MG/20 ML SDV ONE (07:37)
[2019-06-22] MEDS ORDERED: BUPIVACAINE HCL 0.25 % INJ/PF (2.5 MG/1 ML) 30 ML VIAL ONE (07:37)
[2019-06-22] MEDS ORDERED: FENTANYL CITRATE INJ/PF 100 MCG/2 ML AMPUL IV PRN ×3 (08:32)
[2019-06-22] MEDS ORDERED: DIPHENHYDRAMINE HCL 50 MG/ML VIAL IV PRN (08:32)
[2019-06-22] MEDS ORDERED: PROMETHAZINE HCL INJ 25 MG/1 ML VIAL IV PRN ×2 (08:32)
[2019-06-22] MEDS ORDERED: ONDANSETRON HCL INJ/PF 4 MG/2 ML SDV IV PRN (08:32)
[2019-06-22] MEDS ORDERED: BUPIVACAINE INJ/PF LIPOSOME/PF 266 MG/20 ML SDV INJ ONE (08:50)
--- NOTE | 2019-06-22 08:56 | Operative Report ---
Nonrecallable Operative Report DATE OF SURGERY: 06/22/19 PREOPERATIVE DIAGNOSIS: Hemorrhoids rule out rectal fissure POSTOPERATIVE DIAGNOSIS: Healing perirectal abscess OPERATION: Exam under anesthesia, hemorrhoidal banding x3 SURGEON: POOJA JUNIOR ANESTHESIA: LMAC TISSUE REMOVED OR ALTERED: None COMPLICATIONS: None ESTIMATED BLOOD LOSS: 10 cc INTRAOPERATIVE FINDINGS: At the 9 o'clock position in a jackknife position there was a small punctate pore which was injected with a peroxide solution without evidence of a tract into the rectum PROCEDURE: Patient was brought to the operating room awake alert stable condition placed in the upper table supine position induced under general anesthesia. He was then placed in a high lithotomy position. After appropriate timeout and site verification the procedure commenced. Patient's rectum was digitalized and it was quite tight and would barely admit a index finger. The rectum was gently dilated to 2 index fingers and then allowed admission of the endoscope. Upon placing the anoscope we examined all 4 quadrants and did not note a rectal fissure however that he had grade 3 hemorrhoids. The the scope was then removed and the small punctate pore noted at the 9 o'clock position just external to the sphincter muscles was probed with a anal probe and it did initially did not admit but then a small anal probe was utilized and the did gently admitted to about 1.5 cm I then remove the anal probe and placed a 22-gauge Intracath into the cavity and injected peroxide solution. Peroxide solution approximately 3 cc did not enter the anal canal. I could not find a entrance into the anal canal. I therefore allowed that to drain and tu rned attention to the grade 3 hemorrhoids. There was grade 3 hemorrhoids at the 11:00 7:00 and 5 o'clock position the hemorrhoids at the 11:00 and 7:00 positions were banded with the hemorrhoidal optical instrument repairer. This completed the procedure the scope was removed The patient was then placed back in a supine position and transferred to the recovery room in stable condition. Estimated blood loss was less than 10 cc sponge needle counts were correct x2
--- NOTE | 2019-06-22 09:03 | Discharge Summary ---
Discharge Summary (SDC) - Discharge Final Diagnosis: Hemorrhoids Date of Surgery: 06/22/19 Discharge Date: 06/22/19 Condition: Good Treatment or Instructions: Sits baths with Epsom salts 3 times daily Prescriptions: Tramadol HCl [Tramadol HCl ER] 100 mg PO Q6 #20 cpbp.25.75 Referrals: RADHA CHAO MD [Primary Care Provider] -
[2019-06-22] MEDS ORDERED: ACETAMINOPHEN 1,000 MG/100 ML RTUPB IV ONE (09:28)
[2019-06-22 11:36] VITALS: BP 128/64
== END 2019-06-22 10:35 | disposition home or self-care (01) ==
LOC: OROUT 06:00
PROVIDERS: ATTEND Surgery
DX: K64.2 Third degree hemorrhoids (principal); K60.4 Rectal fistula; Z79.899 Other long term (current) drug therapy; Z88.0 Allergy status to penicillin; Z99.81 Dependence on supplemental oxygen; J44.9 Chronic obstructive pulmonary disease, unspecified; Z86.73 Personal history of transient ischemic attack (TIA), and cerebral infarction without residual deficits; Z99.89 Dependence on other enabling machines and devices; E11.9 Type 2 diabetes mellitus without complications; Z87.891 Personal history of nicotine dependence; Z79.84 Long term (current) use of oral hypoglycemic drugs; Z79.01 Long term (current) use of anticoagulants; Z79.82 Long term (current) use of aspirin; Z79.51 Long term (current) use of inhaled steroids; G40.909 Epilepsy, unspecified, not intractable, without status epilepticus; I25.10 Atherosclerotic heart disease of native coronary artery without angina pectoris; I48.91 Unspecified atrial fibrillation; Z86.010 Personal history of colon polyps; I34.0 Nonrheumatic mitral (valve) insufficiency; E03.9 Hypothyroidism, unspecified; E78.00 Pure hypercholesterolemia, unspecified; K21.9 Gastro-esophageal reflux disease without esophagitis; Z85.46 Personal history of malignant neoplasm of prostate; Z96.651 Presence of right artificial knee joint
CPT/HCPCS: 93005 ×2; 36415 ×2; 82962; 82947; 84132; 80048; 93010 ×2; 00902; 46221; J2250; J3010; J2704; J3490; J0131; C9290; 902

== ENCOUNTER → 2019-09-03 | Outpatient (CLI) | payer MEDICARE, MEDICAID ==
--- NOTE | 2019-09-03 09:30 | RADIOLOGY REPORT (SQ) ---
EXAM DESCRIPTION: CHEST PA/LATERAL IMAGES COMPLETED DATE/TIME: 09/03/2019 9:20 am REASON FOR STUDY: VIRAL UPPER RESPIRATORY TRACT INFECTION COMPARISON: 05/29/2015 EXAM PARAMETERS: NUMBER OF VIEWS: two views TECHNIQUE: Digital Frontal and Lateral radiographic views of the chest acquired. RADIATION DOSE: NA LIMITATIONS: none FINDINGS: LUNGS AND PLEURA: No opacities, masses or pneumothorax. No pleural effusion. Minimal left basilar linear atelectasis or scarring, stable. MEDIASTINUM AND HILAR STRUCTURES: No masses or contour abnormalities. HEART AND VASCULAR STRUCTURES: Enlarged cardiac silhouette, stable. Tortuous thoracic aorta. BONES: No acute findings. HARDWARE: None in the chest. OTHER: No other significant finding. IMPRESSION: No evidence of acute cardiopulmonary process. TECHNICAL DOCUMENTATION: JOB ID: [id number] 2010 [employer]- All Rights Reserved Reading location - IP/workstation name: [email or web address]
[2019-09-03 09:49] LABS: A TYPE INFLUENZA AG NEGATIVE (NEGATIVE); B INFLUENZA AG NEGATIVE (NEGATIVE)
== END ==
LOC: OD 08:42
PROVIDERS: ATTEND Family Medicine Geriatric Medicine
DX: J02.9 Acute pharyngitis, unspecified (principal)
CPT/HCPCS: 71046; 87070; 87804; 87880

== ENCOUNTER → 2019-11-23 | Outpatient (CLI) | payer MEDICARE, MEDICAID ==
--- NOTE | 2019-11-23 10:57 | RADIOLOGY REPORT (SQ) ---
EXAM DESCRIPTION: BARIUM SWALLOW ESOPHAGUS IMAGES COMPLETED DATE/TIME: 11/23/2019 8:57 am REASON FOR STUDY: DYSPHAGIA (R13.10) R13.10 DYSPHAGIA, UNSPECIFIED COMPARISON: 04/29/2017 barium swallow. TECHNIQUE: Under fluoroscopic guidance, patient ingested effervescent granules followed by thick and thin barium. Fluoroscopic spot images and routine radiographic images acquired and stored on PACS. 12 MM BARIUM TABLET GIVEN: Yes. No significant delay in passage. LIMITATIONS: None. FLUOROSCOPY TIME: FLUORO TIME: 1.8 minutes. 9 images saved to PACS. FINDINGS: NEUROMUSCULAR COORDINATION OF SWALLOW: Normal. No aspiration. ESOPHAGEAL MOTILITY: Weak primary peristalsis. Minimal tertiary contractions. No esophageal spasm. ESOPHAGEAL MUCOSA: Normal mucosa without masses or ulceration. GASTRO-ESOPHAGEAL JUNCTION: Small sliding hiatal hernia with mild gastroesophageal reflux. 12 mm bar ium tablet passed through the GE junction without delay. NON-GI TRACT STRUCTURES: No significant finding. OTHER: No other significant finding. IMPRESSION: 1. PRESBYESOPHAGUS 2. SMALL SLIDING HIATAL HERNIA WITH MILD GASTROESOPHAGEAL REFLUX COMMENT: Quality ID [id number]: Final reports for procedures using fluoroscopy that document radiation exp osure indices, or exposure time and number of fluorographic images (if radiation exposure indices are not available) TECHNICAL DOCUMENTATION: JOB ID: [id number] 2010 [employer]- All Rights Reserved Reading location - IP/workstation name: [email or web address]
== END ==
LOC: RAD 07:57
PROVIDERS: ATTEND Family Medicine Geriatric Medicine
DX: R13.10 Dysphagia, unspecified (principal)
CPT/HCPCS: 74220

== ENCOUNTER → 2020-02-25 | Outpatient (CLI) | payer MEDICARE, MEDICAID ==
[2020-02-25 09:30] LABS: ABSOLUTE EOSINOPHILS # (AUTO) 0.8 10^3/uL (0.0-0.6); ABSOLUTE MONOCYTES (AUTO) 0.5 10^3/uL (0.1-1.4); ABSOLUTE NEUT (AUTO) 4.1 10^3/uL (1.7-8.2); BASOPHILS % (AUTO) 0.5 % (0-2); EOSINOPHILS % (AUTO) 12.1 % (0-6); HEMATOCRIT 37.9 % (37.9-51.0); HEMOGLOBIN 13.2 g/dL (13.5-17.0); LYMPHOCYTES % (AUTO) 15.7 % (13-45); MEAN CORPUSCULAR HEMOGLOBIN 30.6 pg (27.0-33.4); MEAN CORPUSCULAR HGB CONC 34.8 g/dL (32.0-36.0); MEAN CORPUSCULAR VOLUME 88 fl (80-97); MONOCYTES % (AUTO) 7.8 % (3-13); PLATELET COUNT 180 10^3/uL (150-450); RED BLOOD COUNT 4.32 10^6/uL (4.35-5.55); RED CELL DISTRIBUTION WIDTH 14.8 % (11.5-14.0); SEGMENTED NEUTROPHILS % (AUTO) 63.9 % (42-78); TOTAL CELLS COUNTED % (AUTO) 100 %; WHITE BLOOD COUNT 6.5 10^3/uL (4.0-10.5)
[2020-02-25 10:27] LABS: APPEARANCE,URINE CLOUDY; BILIRUBIN,URINE NEGATIVE (NEGATIVE); GLUCOSE, URINE NEGATIVE (NEGATIVE); KETONES,URINE NEGATIVE (NEGATIVE); LEUKOCYTE ESTERASE,URINE MODERATE (NEGATIVE); NITRITE,URINE NEGATIVE (NEGATIVE); PROTEIN,URINE 30 mg/dL (NEGATIVE); URINE SPECIFIC GRAVITY 1.015
[2020-02-25 10:28] LABS: COLOR,URINE DARK YELLOW
== END ==
LOC: OD 08:54
PROVIDERS: ATTEND Family Medicine Geriatric Medicine
DX: R31.9 Hematuria, unspecified (principal); Z79.899 Other long term (current) drug therapy
CPT/HCPCS: 36415; 81001; 85025

== ENCOUNTER 2020-03-08 19:31 | Observation (INO) | payer MEDICARE, MEDICAID ==
[2020-03-08] MEDS ORDERED: CALCIUM GLUCONATE 1000 MG/10 ML INJ IV ONE (20:13)
[2020-03-08 20:22] LABS: ABSOLUTE EOSINOPHILS # (AUTO) 0.9 10^3/uL (0.0-0.6); ABSOLUTE LYMPHOCYTES (AUTO) 1.3 10^3/uL (0.5-4.7); ABSOLUTE MONOCYTES (AUTO) 0.5 10^3/uL (0.1-1.4); ABSOLUTE NEUT (AUTO) 2.4 10^3/uL (1.7-8.2); BASOPHILS % (AUTO) 0.4 % (0-2); EOSINOPHILS % (AUTO) 17.6 % (0-6); HEMATOCRIT 34.5 % (37.9-51.0); HEMOGLOBIN 12.2 g/dL (13.5-17.0); LYMPHOCYTES % (AUTO) 25.6 % (13-45); MEAN CORPUSCULAR HEMOGLOBIN 31.1 pg (27.0-33.4); MEAN CORPUSCULAR HGB CONC 35.3 g/dL (32.0-36.0); MEAN CORPUSCULAR VOLUME 88 fl (80-97); MONOCYTES % (AUTO) 9.1 % (3-13); PLATELET COUNT 127 10^3/uL (150-450); RED BLOOD COUNT 3.91 10^6/uL (4.35-5.55); RED CELL DISTRIBUTION WIDTH 14.5 % (11.5-14.0); SEGMENTED NEUTROPHILS % (AUTO) 47.3 % (42-78); TOTAL CELLS COUNTED % (AUTO) 100 %; WHITE BLOOD COUNT 5.1 10^3/uL (4.0-10.5)
[2020-03-08 20:30] LABS: INTERNATIONAL RATION (INR) 1.35; PROTHROMBIN TIME 16.8 SEC (11.4-15.4)
[2020-03-08 20:37] LABS: ALBUMIN 3.3 g/dL (3.5-5.0); ALKALINE PHOSPHATASE 112 U/L (38-126); ANION GAP 6 (5-19); ASPARTATE AMINO TRANSFERASE 16 U/L (17-59); BILIRUBIN,DIRECT 0.2 mg/dL (0.0-0.4); BILIRUBIN,TOTAL 0.5 mg/dL (0.2-1.3); BLOOD UREA NITROGEN 9 mg/dL (7-20); CARBON DIOXIDE 31 mmol/L (22-30); CHLORIDE 91 mmol/L (98-107); GLUCOSE 88 mg/dL (75-110); POTASSIUM 4.2 mmol/L (3.6-5.0); TOTAL PROTEIN 5.5 g/dL (6.3-8.2)
[2020-03-08 20:40] LABS: CREATINE KINASE < 20 U/L (55-170)
--- NOTE | 2020-03-08 20:58 | RADIOLOGY REPORT (SQ) ---
EXAM DESCRIPTION: XR CHEST 1 VIEW COMPLETED DATE/TME: 03/08/2020 19:56 CLINICAL HISTORY: 69 years, Male, htn COMPARISON: Chest x-ray 09/03/2019 TECHNIQUE: Portable chest x-ray FINDINGS: Moderate cardiomegaly. Mildly ectatic aorta and main pulmonary artery. No acute lung pleural bone abnormalities. IMPRESSION: Chronic findings. No acute findings.
--- NOTE | 2020-03-08 21:38 | ER Document Report ---
Entered by LEONOR VASQUEZ SCRIBE 03/08/202042 Acting as scribe for:KAYLYN ORTIZ DO ED Cardiac - General Chief Complaint: Arrhythmia Stated Complaint: HEART PROBLEM Time Seen by Provider: 03/08/20 19:54 Primary Care Provider: RADHA CHAO MD [Primary Care Provider] - Follow up as needed Information source: Patient Notes: This 69 year old male patient presents to the emergency department today with arrival via EMS for bradycardia. Patient's home health nurse noticed he had a slow heart rate and called for EMS. Patient reports history of Afib and a traumatic brain injury. Patient reports a mechanical fall yesterday from his knee giving out. Denies any dizziness, chest pain, or shortness of breath. TRAVEL OUTSIDE OF THE [place] IN LAST 30 DAYS: No - Related Data Allergies/Adverse Reactions: iodine [Iodine] Allergy (Mild, Verified 06/22/19 06:53) VOMITING Shellfish * [Shellfish] Allergy (Mild, Verified 06/22/19 06:53) VOMITING Past Medical History - General Information source: Patient - Social History Smoking Status: Never Smoker Cigarette use (# per day): No Family History: CAD, DM - Past Medical History Cardiac Medical History: Reports: Hx Congestive Heart Failure, Hx Coronary Melissa ry Disease, Hx Hypercholesterolemia, Hx Hypertension - medicated Pulmonary Medical History: Reports: Hx Asthma - COPD, Hx Bronchitis, Hx COPD Neurological Medical History: Reports: Hx Cerebrovascular Accident - 1994 left sided weakness/uses cane, Hx Seizures - hx of/on meds Endocrine Medical History: Reports: Hx Diabetes Mellitus Type 2, Hx Hypothyroidism Renal/ Medical History: Reports: Hx Kidney Stones GI Medical History: Reports: Hx Gastroesophageal Reflux Disease Musculoskeletal Medical History: Reports Hx Arthritis - gout , Reports Hx Gout, Reports Hx Multiple Sclerosis Psychiatric Medical History: Reports: Hx Depression Traumatic Medical History: Reports: Hx Traumatic Brain Injury Past Surgical History: Reports: Hx Orthopedic Surgery - right knee - Immunizations Hx Diphtheria, Pertussis, Tetanus Vaccination: No Hx Pneumococcal Vaccination: 01/31/13 Review of Systems - Review of Systems Constitutional: No symptoms reported EENT: No symptoms reported Cardiovascular: See HPI, Other - slow heart rate. denies: Chest pain, Dizziness Respiratory: See HPI. denies: Short of breath Gastrointestinal: No symptoms reported Genitourinary: No symptoms reported Male Genitourinary: No symptoms reported Musculoskeletal: No symptoms reported Skin: No symptoms reported Hematologic/Lymphatic: No symptoms reported Neurological/Psychological: No symptoms reported -: Yes All other systems reviewed and negative Physical Exam - Vital signs Vitals: Resp Pulse Ox 12 97 03/08/20 19:54 03/08/20 19:54 - General Notes: Awake. Alert. Appears chronically ill and older than stated age. - HEENT Head: Normocephalic, Atraumatic Eyes: Normal Pupils: PERRL - Respiratory Respiratory status: No respiratory distress Chest status: Nontender Breath sounds: Normal Chest palpation: Normal - Cardiovascular Rhythm: Irregularly irregular, Bradycardia - Abdominal Inspection: Obese Distension: No distension Bowel sounds: Normal Tenderness: Nontender - Extremities General upper extremity: Normal inspection Notes: Scar on right knee from replacement surgery. Trace peripheral edema of bilateral lower extremities. - Neurological Neuro grossly intact: Yes Ale Coma Scale Eye Opening: Spontaneous [place] Coma Scale Verbal: Oriented [place] Coma Scale Motor: Obeys Commands [place] Coma Scale Total: 15 - Psychological Associated symptoms: Normal affect, Normal mood - Skin Skin Temperature: Warm Skin Moisture: Dry Skin Color: Normal Course - Vital Signs Vital signs: Temp Pulse Resp BP Pulse Ox 98.0 F 9 L 146/53 H 99 03/08/20 21:59 03/08/20 23:31 03/08/20 23:31 03/08/20 23:31 - Laboratory Result Diagrams: 03/08/20 20:00 03/08/20 20:00 Laboratory results interpreted by me: 03/08/20 03/08/20 03/08/20 20:00 20:00 20:00 RBC 3.91 L Hgb 12.2 L Hct 34.5 L RDW 14.5 H Plt Count 127 L Eos % (Auto) 17.6 H Absolute Eos (auto) 0.9 H PT 16.8 H Sodium 127.8 L Chloride 91 L Carbon Dioxide 31 H Creatinine 0.49 L Calcium 8.0 L AST 16 L Creatine Kinase < 20 L Total Protein 5.5 L Albumin 3.3 L Urine Blood Urine Urobilinogen Ur Leukocyte Esterase 03/08/20 21:35 RBC Hgb Hct RDW Plt Count Eos % (Auto) Absolute Eos (auto) PT Sodium Chloride Carbon Dioxide Creatinine Calcium AST Creatine Kinase Total Protein Albumin Urine Blood LARGE H Urine Urobilinogen 4.0 H Ur Leukocyte Esterase MODERATE H - Diagnostic Test Radiology reviewed: Image reviewed, Reports reviewed - EKG Interpretation by Me EKG shows normal: Sinus rhythm Rate: Bradycardia - Sinus Brent 39 BPM rep[address] ab no st elevation or depression my interpretation. Critical Care Note - Critical Care Note Total time excluding time spent on procedures (mins): 30 Discharge - Discharge Clinical Impression: Bradycardia Atrial fibrillation Qualifiers: Atrial fibrillation type: unspecified chronic Qualified Code(s): I48.20 - Chronic atrial fibrillation, unspecified; I48.2 - Chronic atrial fibrillation Condition: Serious Disposition: ADMITTED OBSERVATION Admitting Provider: Farida (Hospitalist) Unit Admitted: Telemetry Referrals: RADHA CHAO MD [Primary Care Provider] - Follow up as needed I personally performed the services described in the documentation, reviewed and edited the documentation which was dictated to the scribe in my presence, and it accurately records my words and actions.
[2020-03-08 22:04] LABS: APPEARANCE,URINE CLEAR; BILIRUBIN,URINE NEGATIVE (NEGATIVE); COLOR,URINE YELLOW; GLUCOSE, URINE NEGATIVE (NEGATIVE); KETONES,URINE NEGATIVE (NEGATIVE); LEUKOCYTE ESTERASE,URINE MODERATE (NEGATIVE); NITRITE,URINE NEGATIVE (NEGATIVE); PROTEIN,URINE NEGATIVE (NEGATIVE)
[2020-03-09] MEDS ORDERED: ACETAMINOPHEN 325 MG TABLET PO PRN (02:15)
[2020-03-09] MEDS ORDERED: LORAZEPAM 0.5 MG TABLET PO PRN (02:27)
[2020-03-09] MEDS ORDERED: DEXTROSE 50%-WATER 25 GM/50 ML DISP.SYRIN IV PRN ×2 (03:33)
[2020-03-09] MEDS ORDERED: DEXTROSE 40% GEL 15 GM TUBE PO PRN ×2 (03:33)
[2020-03-09] MEDS ORDERED: GLUCAGON,HUMAN RECOMB 1 MG INJ IM PRN (03:33)
--- NOTE | 2020-03-09 03:37 | PDOC H&P ---
History of Present Illness Admission Date/PCP: 03/09/20 02:28 RADHA CHAO MD Patient complains of: slow heart rate History of Present Illness: ZHANNA HURTADO is a 69 year old male, past medical history of traumatic brain injury, hypothyroidism, atrial fibrillation, hypertension, hyperlipidemia, COPD, previous strokes, who was sent to the emergency room after he was noted to have bradycardia of 30s. He was being seen by home health at his home and when they took his heart rate it was noted to be 30s, the patient is asymptomatic. According to the patient he had an episode of fall yesterday after his legs gave up, he denied any dizziness, syncope, lightheadedness, chest pain. He denied any recent changes to his medications. Of note there is an EKG done in 2018 which showed sinus bradycardia with a heart rate of 44. In the ED his heart rate was noted to be consistently low 30s to low 40s. Blood pressure 162/61, respiratory rate 14, O2 sat 100% on 2 L of nasal cannula. He is usually on 2 L of nasal cannula at home. ED physician spoke to Dr. Willson who recommended that the patient be admitted for monitoring. Past Medical History Cardiac Medical History: Reports: Congestive Heart Failure, Coronary Artery Disease, Hyperlipidema, Hypertension - medicated Denies: Atrial Fibrillation, Myocardial Infarction, Peripheral Vascular Disease, Pulmonary Embolism, Heart Murmur Pulmonary Medical History: Reports: Asthma - COPD, Bronchitis, Chronic Obstructive Pulmonary Disease (COPD) Denies: Pneumonia, Respiratory Failure, Sleep Apnea, Tuberculosis Neurological Medical History: Reports: Seizures - hx of/on meds Endocrine Medical History: Reports: Diabetes Mellitus Type 2, Hypothyroidism Denies: Hyperthyroidism Renal/ Medical History: Denies: End Stage Renal Disease Malignancy Medical History: Denies: Leukemia, Lung Cancer GI Medical History: Reports: Gastroesophageal Reflux Disease Denies: Crohn's Disease, Hepatitis, Hiatal Hernia Musculoskeltal Medical History: Reports: Arthritis - gout , Gout Denies: Fibromyalgia Psychiatric Medical History: Reports: Depression Denies: Bipolar Disorder, Dementia, Post Traumatic Stress Disorder Traumatic Medical History: Reports: Traumatic Brain Injury Hematology: Denies: Anemia, Hemophilia, Sickle Cell Disease Infectious Medical History: Denies: HIV Past Surgical History Past Surgical History: Reports: Orthopedic Surgery - right knee Denies: Appendectomy, Cholecystectomy, Colostomy, Coronary Artery Bypass Graft, Gastric Bypass Surgery, Herniorrhaphy, Pacemaker, Tonsillectomy Social History Smoking Status: Never Smoker Frequency of Alcohol Use: None Hx Recreational Drug Use: No Drugs: None Hx Prescription Drug Abuse: No Family History Family History: CAD, DM Parental Family History Reviewed: No Children Family History Reviewed: No Sibling(s) Family History Reviewed.: No Medication/Allergy Home Medications: Amlodipine Besylate [Norvasc 5 mg Tablet] 5 mg PO DAILY 01/22/19 Aspirin [Adult Low Dose Aspirin EC] 81 mg PO DAILY 01/22/19 Cetirizine HCl [Zyrtec] 10 mg PO DAILY 01/22/19 Cyanocobalamin (Vitamin B-12) [B-12] 500 mcg PO DAILY 01/22/19 Duloxetine HCl [Cymbalta] 30 mg PO BID 01/22/19 Eslicarbazepine Acetate [Aptiom] 400 mg PO QHS 01/22/19 Furosemide [Lasix 40 mg Tablet] 40 mg PO DAILY 01/22/19 Levothyroxine Sodium [Synthroid 0.05 mg Tablet] 50 mcg PO DAILY 01/22/19 Meloxicam [Mobic] 7.5 mg PO DAILY 01/22/19 Metformin HCl 500 mg PO DAILY 01/22/19 Metoprolol Succinate [Toprol Xl 50 mg Tab.sr] 50 mg PO DAILY 01/22/19 Atorvastatin Calcium [Lipitor 20 mg Tablet] 20 mg PO QHS #30 tablet 01/24/19 Apixaban [Eliquis 5 mg Tablet] 5 mg PO BID 06/22/19 Potassium Chloride 10 meq PO BID 06/22/19 Tramadol HCl [Tramadol HCl ER] 100 mg PO Q6 #20 cpbp.25.75 06/22/19 Trazodone HCl 100 mg PO DAILY 06/22/19 Allergies/Adverse Reactions: iodine [Iodine] Allergy (Mild, Verified 06/22/19 06:53) VOMITING Shellfish * [Shellfish] Allergy (Mild, Verified 06/22/19 06:53) VOMITING Review of Systems Cardiovascular: ABSENT: chest pain, orthropnea, palpitations Gastrointestinal: ABSENT: dysphagia, heartburn Physical Exam Vital Signs: Temp Pulse Resp BP Pulse Ox 98.0 F 10 L 139/53 H 100 03/08/20 21:59 03/09/20 02:31 03/09/20 02:31 03/09/20 02:31 Intake & Output 03/07/20 03/08/20 03/09/20 06:59 06:59 06:59 Intake Total 50 Balance 50 General appearance: PRESENT: no acute distress, cooperative, hard of hearing Head exam: PRESENT: atraumatic, normocephalic Eye exam: PRESENT: EOMI, PERRLA Mouth exam: PRESENT: moist Neck exam: PRESENT: full ROM Respiratory exam: PRESENT: clear to auscultation rosey, symmetrical, unlabored Cardiovascular exam: PRESENT: RRR, +S1, +S2. ABSENT: tachycardia GI/Abdominal exam: PRESENT: normal bowel sounds, soft. ABSENT: rebound, tenderness Extremities exam: PRESENT: full ROM, +1 edema Musculoskeletal exam: PRESENT: full ROM Neurological exam: PRESENT: alert, awake, oriented to person, oriented to place, oriented to time Psychiatric exam: PRESENT: normal mood Skin exam: PRESENT: normal color Results Laboratory Results: 03/08/20 20:00 03/08/20 20:00 03/08/20 03/08/20 03/08/20 20:00 20:00 20:00 WBC 5.1 RBC 3.91 L Hgb 12.2 L Hct 34.5 L MCV 88 MCH 31.1 MCHC 35.3 RDW 14.5 H Plt Count 127 L Seg Neutrophils % 47.3 Sodium 127.8 L Potassium 4.2 Chloride 91 L Carbon Dioxide 31 H Anion Gap 6 BUN 9 Creatinine 0.49 L Est GFR ( Amer) > 60 Glucose 88 Calcium 8.0 L Magnesium 1.7 Total Bilirubin 0.5 AST 16 L Alkaline Phosphatase 112 Total Protein 5.5 L Albumin 3.3 L TSH 0.62 Urine Color Urine Appearance Urine pH Ur Specific [place] Urine Protein Urine Glucose (UA) Urine Ketones Urine Blood Urine Nitrite Ur Leukocyte Esterase Urine WBC (Auto) Urine RBC (Auto) 03/08/20 21:35 WBC RBC Hgb Hct MCV MCH MCHC RDW Plt Count Seg Neutrophils % Sodium Potassium Chloride Carbon Dioxide Anion Gap BUN Creatinine Est GFR ( Amer) Glucose Calcium Magnesium Total Bilirubin AST Alkaline Phosphatase Total Protein Albumin TSH Urine Color YELLOW Urine Appearance CLEAR Urine pH 7.0 Ur Specific [place] 1.010 Urine Protein NEGATIVE Urine Glucose (UA) NEGATIVE Urine Ketones NEGATIVE Urine Blood LARGE H Urine Nitrite NEGATIVE Ur Leukocyte Esterase MODERATE H Urine WBC (Auto) 43 Urine RBC (Auto) 162 03/08/20 03/08/20 20:00 20:00 Creatine Kinase < 20 L Troponin I < 0.012 Impressions: Chest X-Ray 03/08/20 19:56 IMPRESSION: Chronic findings. No acute findings. Assessment and Plan - Diagnosis (1) Bradycardia Is this a current diagnosis for this admission?: Yes Plan: -Noted with bradycardia to low 30s by home health -Asymptomatic -history of A. fib on Eliquis and metoprolol -Blood pressure 162/81 -EKG sinus bradycardia -Initial troponin negative -Plan to observe overnight, metoprolol stopped -TSH ordered -Cardio consulted (2) Atrial fibrillation Qualifiers: Atrial fibrillation type: unspecified chronic Qualified Code(s): I48.20 - Chronic atrial fibrillation, unspecified; I48.2 - Chronic atrial fibrillation Is this a current diagnosis for this admission?: Yes Plan: -Eliquis resumed -Metoprolol stopped due to bradycardia (3) Congestive heart failure Qualifiers: Qualified Code(s): I50.9 - Heart failure, unspecified Is this a current diagnosis for this admission?: Yes Plan: - systolic, not in exacerbation - lasix resumed (4) Hypertension Qualifiers: Hypertension type: essential hypertension Qualified Code(s): I10 - Essential (primary) hypertension Is this a current diagnosis for this admission?: Yes Plan: -Lisinopril and amlodipine resumed (5) Type 2 diabetes mellitus Qualifiers: Diabetes mellitus long term care phlebotomist insulin use: without long term care phlebotomist use Diabetes mellitus complication status: with other specified complication Qualified Code(s): E11.69 - Type 2 diabetes mellitus with other specified complication Is this a current diagnosis for this admission?: Yes Plan: - metformin held - sliding scale insulin - accucheck (6) Hypothyroidism Qualifiers: Hypothyroidism type: unspecified Qualified Code(s): E03.9 - Hypothyroidism, unspecified Is this a current diagnosis for this admission?: Yes Plan: - TSh pending -On Synthroid (7) Anxiety Is this a current diagnosis for this admission?: Yes Plan: - on lexapro, trazodone (8) History of CVA with residual deficit Is this a current diagnosis for this admission?: Yes (9) Coronary artery disease Qualifiers: Coronary Disease-Associated Artery/Lesion type: unspecified vessel or lesion type Associated angina: without angina Is this a current diagnosis for this admission?: Yes Plan: - continue aspirin - Trop negative x 1 (10) Personal history of traumatic brain injury Is this a current diagnosis for this admission?: Yes - Time Time Spent with patient: 25-34 minutes Anticipated Discharge Disposition: Home, Self Care Anticipated Discharge Timeframe: within 24 hours
[2020-03-09] MEDS ORDERED: PANTOPRAZOLE SODIUM 40 MG TABLET.DR PO SCH (06:00)
[2020-03-09] MEDS ORDERED: LEVOTHYROXINE SODIUM 0.05 MG TABLET PO SCH (06:00)
[2020-03-09] MEDS: INSULIN LISPRO 100 UNIT/ML 3 ML VIAL SUBCUT SCH ×3 (08:00→16:02)
--- NOTE | 2020-03-09 08:55 | EKG REPORT ---
SEVERITY:- ABNORMAL ECG - SINUS BRADYCARDIA FIRST DEGREE AV BLOCK NONSPECIFIC IVCD WITH LAD INFERIOR INFARCT, AGE INDETERMINATE : Confirmed by: Ana Maria Saini MD 09-Mar-2020 08:54:41
[2020-03-09] MEDS: LISINOPRIL 5 MG TABLET PO SCH ×2 (09:53→17:34)
[2020-03-09] MEDS: APIXABAN 5 MG TABLET PO SCH ×2 (09:53→17:35)
[2020-03-09] MEDS ORDERED: AMLODIPINE BESYLATE 5 MG TABLET PO SCH (10:00)
[2020-03-09] MEDS ORDERED: TRAZODONE HCL 50 MG TABLET PO SCH (10:00)
[2020-03-09] MEDS ORDERED: POTASSIUM CHLORIDE 10 MEQ TABLET.ER PO SCH (10:00)
[2020-03-09] MEDS ORDERED: ESCITALOPRAM OXALATE 10 MG TABLET PO SCH (10:00)
[2020-03-09] MEDS ORDERED: FUROSEMIDE 40 MG TABLET PO SCH (10:00)
[2020-03-09] MEDS ORDERED: ASPIRIN 81 MG TABLET, ENT COATED PO SCH (10:00)
[2020-03-09] MEDS ORDERED: CYANOCOBALAMIN (VITAMIN B-12) 1,000 MCG TABLET PO SCH (10:00)
--- NOTE | 2020-03-09 11:19 | PDOC CONSULTATION ---
Consultation Consult Date: 03/09/20 Attending physician:: CARLOS ALBERTO MARTINEZ Provider Consulted: MARYANNE FAN Consult reason:: Bradycardia History of Present Illness Admission Date/PCP: 03/09/20 02:28 RADHA CHAO MD History of Present Illness: ZHANNA HURTADO is a 69 year old male with history of history of t TBI, hypothyroidism, paroxysmal atrial fibrillation, hypertension, hyperlipidemia, COPD, previous strokes who is consulted to our service for evaluation of sinus bradycardia. The patient was evaluated by home health at his home and was noted to have a pulse in the 30s therefore he was sent to our emergency room. At that time his heart rate was noted in the mid 30s to low 40s however the patient was essentially asymptomatic even though he did have a fall yesterday that he attributed to his legs giving out. He had been on a beta-dhaval which was discontinued in the emergency room. His telemetry demonstrated sinus bradycardia as low as 36 bpm. Physical exam on 03/09/2020: GENERAL: Pleasant and conversational. Oriented x3 with normal mood. Not in acute distress. Well groomed and well developed. HEENT: Normocephalic, atraumatic. Pupils equal. Sclerae anicteric. Oropharynx moist. NECK: No JVD. No carotid bruits. LUNGS: Clear to auscultation bilaterally. Normal respiratory effort without the use of accessory muscles or intercostal retractions. CARDIOVASCULAR: Bradycardic. Regular rate and rhythm, normal S1 and S2 without murmurs, rubs, or gallops. PMI not displaced. ABDOMEN: No masses or tenderness to palpation. No bruit. No splenomegaly or hepatomegaly. No abdominal aorta bruit noted. EXTREMITIES: No edema, no cyanosis, no clubbing. +2 pulses femoral and pedal pulses bilaterally. SKIN: No lesions or rashes. MUSCULOSKELETAL: No chest tenderness to palpation. Past Medical History Cardiac Medical History: Reports: Congestive Heart Failure, Coronary Artery Dise ase, Hyperlipidema, Hypertension - medicated Denies: Atrial Fibrillation, Myocardial Infarction, Peripheral Vascular Disease, Pulmonary Embolism, Heart Murmur Pulmonary Medical History: Reports: Asthma, Bronchitis, Chronic Obstructive Pulmonary Disease (COPD) Denies: Pneumonia, Respiratory Failure, Sleep Apnea, Tuberculosis Neurological Medical History: Reports: Seizures Endocrine Medical History: Reports: Diabetes Mellitus Type 2, Hypothyroidism Denies: Hyperthyroidism Renal/ Medical History: Denies: End Stage Renal Disease Malignancy Medical History: Denies: Leukemia, Lung Cancer GI Medical History: Reports: Gastroesophageal Reflux Disease Denies: Crohn's Disease, Hepatitis, Hiatal Hernia Musculoskeltal Medical History: Reports: Arthritis, Gout Denies: Fibromyalgia Psychiatric Medical History: Reports: Depression Denies: Bipolar Disorder, Dementia, Post Traumatic Stress Disorder Traumatic Medical History: Reports: Traumatic Brain Injury Hematology: Denies: Anemia, Hemophilia, Sickle Cell Disease Infectious Medical History: Denies: HIV Past Surgical History Past Surgical History: Reports: Orthopedic Surgery - right knee Denies: Appendectomy, Cholecystectomy, Colostomy, Coronary Artery Bypass Graft, Gastric Bypass Surgery, Herniorrhaphy, Pacemaker, Tonsillectomy Social History Smoking Status: Former Smoker Frequency of Alcohol Use: None Hx Recreational Drug Use: No Drugs: None Hx Prescription Drug Abuse: No - Advance Directive Resuscitation Status: Do Not Resuscitate Family History Family History: CAD, DM Parental Family History Reviewed: Yes Children Family History Reviewed: Yes Sibling(s) Family History Reviewed.: Yes Medication/Allergy Home Medications: Amlodipine Besylate [Norvasc 5 mg Tablet] 5 mg PO DAILY 01/22/19 Aspirin [Adult Low Dose Aspirin EC] 81 mg PO DAILY 01/22/19 Cetirizine HCl [Zyrtec] 10 mg PO DAILY 01/22/19 Cyanocobalamin (Vitamin B-12) [B-12] 500 mcg PO DAILY 01/22/19 Eslicarbazepine Acetate [Aptiom] 1,400 mg PO QHS 01/22/19 Furosemide [Lasix 40 mg Tablet] 40 mg PO DAILY 01/22/19 Levothyroxine Sodium [Synthroid 0.05 mg Tablet] 50 mcg PO DAILY 01/22/19 Metoprolol Succinate [Toprol Xl 50 mg Tab.sr] 50 mg PO DAILY 01/22/19 Atorvastatin Calcium [Lipitor 20 mg Tablet] 20 mg PO QHS #30 tablet 01/24/19 Apixaban [Eliquis 5 mg Tablet] 5 mg PO BID@0800,2000 06/22/19 Potassium Chloride 10 meq PO BID 06/22/19 Trazodone HCl 100 mg PO DAILY 06/22/19 Acetaminophen [Acetaminophen Extra Strength] 1,000 mg PO Q4HP PRN 03/09/20 Albuterol Sulfate [Proair Hfa Inhalation Aerosol 8.5 gm Mdi] 2 puff IH Q4HP PRN 03/09/20 Albuterol Sulfate [Ventolin 0.083% Neb 2.5 mg/3 ml Ampul] 1 vial NEB Q8HP PRN 03/09/20 Escitalopram Oxalate [Lexapro 10 mg Tablet] 30 mg PO DAILY 03/09/20 Lisinopril [Zestril] 2.5 mg PO BID 03/09/20 Lorazepam [Ativan 0.5 mg Tablet] 0.5 mg PO BIDP PRN 03/09/20 Metformin HCl [Metformin HCl ER] 500 mg PO QPM 03/09/20 Montelukast Sodium [Singulair 10 mg Tablet] 10 mg PO QPM 03/09/20 Nitroglycerin [Nitrostat 0.4 mg (1/150 Gr) Tabs 25/Bottle] 1 tab SL Q5MP PRN 03/09/20 Omeprazole 40 mg PO DAILY 03/09/20 Allergies/Adverse Reactions: egg Allergy (Mild, Verified 03/09/20 04:20) VOMITING iodine [Iodine] Allergy (Mild, Verified 06/22/19 06:53) VOMITING Shellfish * [Shellfish] Allergy (Mild, Verified 06/22/19 06:53) VOMITING Physical Exam Vital Signs: Temp Pulse Resp BP Pulse Ox 97.6 F 36 L 18 132/55 H 100 03/09/20 03:57 03/09/20 04:07 03/09/20 03:57 03/09/20 03:57 03/09/20 03:57 Intake & Output 03/08/20 03/09/20 03/10/20 06:59 06:59 06:59 Intake Total 50 Balance 50 Weight 102 kg Results Laboratory Results: 03/08/20 20:00 03/08/20 20:00 03/08/20 03/08/20 03/08/20 20:00 20:00 20:00 WBC 5.1 RBC 3.91 L Hgb 12.2 L Hct 34.5 L MCV 88 MCH 31.1 MCHC 35.3 RDW 14.5 H Plt Count 127 L Seg Neutrophils % 47.3 Sodium 127.8 L Potassium 4.2 Chloride 91 L Carbon Dioxide 31 H Anion Gap 6 BUN 9 Creatinine 0.49 L Est GFR ( Amer) > 60 Glucose 88 Calcium 8.0 L Magnesium 1.7 Total Bilirubin 0.5 AST 16 L Alkaline Phosphatase 112 Total Protein 5.5 L Albumin 3.3 L TSH 0.62 Urine Color Urine Appearance Urine pH Ur Specific [place] Urine Protein Urine Glucose (UA) Urine Ketones Urine Blood Urine Nitrite Ur Leukocyte Esterase Urine WBC (Auto) Urine RBC (Auto) 03/08/20 21:35 WBC RBC Hgb Hct MCV MCH MCHC RDW Plt Count Seg Neutrophils % Sodium Potassium Chloride Carbon Dioxide Anion Gap BUN Creatinine Est GFR ( Amer) Glucose Calcium Magnesium Total Bilirubin AST Alkaline Phosphatase Total Protein Albumin TSH Urine Color YELLOW Urine Appearance CLEAR Urine pH 7.0 Ur Specific [place] 1.010 Urine Protein NEGATIVE Urine Glucose (UA) NEGATIVE Urine Ketones NEGATIVE Urine Blood LARGE H Urine Nitrite NEGATIVE Ur Leukocyte Esterase MODERATE H Urine WBC (Auto) 43 Urine RBC (Auto) 162 03/08/20 03/08/20 20:00 20:00 Creatine Kinase < 20 L Troponin I < 0.012 Impressions: Chest X-Ray 03/08/20 19:56 IMPRESSION: Chronic findings. No acute findings. 03/08/20 20:00 03/08/20 20:00 MCV 88 fl (80-97) 03/08/20 20:00 MCH 31.1 pg (27.0-33.4) 03/08/20 20:00 MCHC 35.3 g/dL (32.0-36.0) 03/08/20 20:00 RDW 14.5 % (11.5-14.0) H 03/08/20 20:00 Seg Neutrophils % 47.3 % (42-78) 03/08/20 20:00 Chloride 91 mmol/L (98-107) L 03/08/20 20:00 Carbon Dioxide 31 mmol/L (22-30) H 03/08/20 20:00 Anion Gap 6 (5-19) 03/08/20 20:00 Est GFR ( Amer) > 60 (>60) 03/08/20 20:00 Glucose 88 mg/dL (75-110) 03/08/20 20:00 Calcium 8.0 mg/dL (8.4-10.2) L 03/08/20 20:00 Magnesium 1.7 mg/dL (1.6-2.3) 03/08/20 20:00 Total Bilirubin 0.5 mg/dL (0.2-1.3) 03/08/20 20:00 AST 16 U/L (17-59) L 03/08/20 20:00 Alkaline Phosphatase 112 U/L (38-126) 03/08/20 20:00 Total Protein 5.5 g/dL (6.3-8.2) L 03/08/20 20:00 Albumin 3.3 g/dL (3.5-5.0) L 03/08/20 20:00 TSH 0.62 uIU/mL (0.47-4.68) 03/08/20 20:00 Urine Color YELLOW 03/08/20 21:35 Urine Appearance CLEAR 03/08/20 21:35 Urine pH 7.0 (5.0-9.0) 03/08/20 21:35 Ur Specific [place] 1.010 03/08/20 21:35 Urine Protein NEGATIVE mg/dL (NEGATIVE) 03/08/20 21:35 Urine Glucose (UA) NEGATIVE mg/dL (NEGATIVE) 03/08/20 21:35 Urine Ketones NEGATIVE mg/dL (NEGATIVE) 03/08/20 21:35 Urine Blood LARGE (NEGATIVE) H 03/08/20 21:35 Urine Nitrite NEGATIVE (NEGATIVE) 03/08/20 21:35 Ur Leukocyte Esterase MODERATE (NEGATIVE) H 03/08/20 21:35 Urine WBC (Auto) 43 /HPF 03/08/20 21:35 Urine RBC (Auto) 162 /HPF 03/08/20 21:35 03/08/20 03/08/20 20:00 20:00 Creatine Kinase < 20 L Troponin I < 0.012 Assessment & Plan - Diagnosis (1) Bradycardia Is this a current diagnosis for this admission?: Yes Plan: His initial EKG demonstrated normal sinus bradycardia with first-degree AV block and the patient remained with a heart rate in the mid 30s overnight. It did increase to 50 bpm with leg kicks while in the bed. This is likely secondary to his beta-dhaval which has already been discontinued. Recommendations: -Continue to hold the beta-dhaval. -Echocardiogram today to assess for LV systolic function given his abnormal chest x-ray.
[2020-03-09 17:38] VITALS: BP 150/53
[2020-03-09] MEDS ORDERED: ESLICARBAZEPINE ACETATE 400 MG PO SCH (22:00)
[2020-03-09] MEDS ORDERED: ATORVASTATIN CALCIUM 20 MG TABLET PO SCH (22:00)
--- NOTE | 2020-03-10 19:05 | PDOC DISCHARGE SUMMARY ---
Impression - Admit/DC Date/PCP Admission Date/Primary Care Provider: 03/09/20 02:28 RADHA CHAO MD Discharge Date: 03/09/20 - Discharge Diagnosis (1) First degree heart block by electrocardiogram Is this a current diagnosis for this admission?: Yes (2) Bradycardia Is this a current diagnosis for this admission?: Yes (3) Atrial fibrillation Is this a current diagnosis for this admission?: Yes (4) Hyponatremia Is this a current diagnosis for this admission?: Yes (5) Hematuria Is this a current diagnosis for this admission?: Yes (6) Normocytic anemia Is this a current diagnosis for this admission?: Yes (7) Congestive heart failure Is this a current diagnosis for this admission?: Yes (8) Coronary artery disease Is this a current diagnosis for this admission?: Yes (9) History of CVA with residual deficit Is this a current diagnosis for this admission?: Yes (10) Hypothyroidism Is this a current diagnosis for this admission?: Yes (11) Personal history of traumatic brain injury Is this a current diagnosis for this admission?: Yes (12) Type 2 diabetes mellitus Is this a current diagnosis for this admission?: Yes (13) Hypertension Is this a current diagnosis for this admission?: Yes - Assessment Summary: ZHANNA HURTADO is a 69 year old male, past medical history of traumatic brain injury, hypothyroidism, atrial fibrillation, hypertension, hyperlipidemia, COPD, previous strokes, who was sent to the emergency room after he was noted to have bradycardia of 30s while being seen by home health. Patient was symptomatic at time of presentation and remained symptomatic entire course of hospitalization. EKG in the ED was notable for sinus bradycardia with first degree AV block. He was subsequently placed on telemetry for further monitoring. Over course of evaluation his heart rate readings were consistently in the 30- 40s, with appropriate elevation of heart rate into the 50s with exertion. Evaluation was completed by both the hospitalist team and cardiology (Dr. Willson). Pt historically on a beta dhaval (Metoprolol) for Afib, this was d iscontinued in the ED as supported by Dr. Willson and hospitalist team. Patient is educated on beta blockade function and agrees to discontinue home medication of Metoprolol. Additionally his home dose of 40mg Furosemide was decreased to 20mg. Pt is to follow up with cardiology in 1-2 weeks for further evaluation with echo, as advised. Upon further evaluation by hospitalist team pt was found to have anemia and hematuria. His previous records were reviewed with similar findings from visit x1 year ago. Findings are concerning for potential underlying malignancy. Recommend follow he follow up with his PCP in 1-2 weeks from discharge for further evaluation with repeat UA and CBC. Patient expresses understanding of medication changes and requirements for follow up. He is agreeable to discharge plan. - Additional Information Resuscitation Status: Do Not Resuscitate Discharge Diet: Cardiac, Diabetic Discharge Activity: Activity As Tolerated, Other Referrals: RADHA CHAO MD [Primary Care Provider] - 03/22/20 10:30 am Prescriptions: Furosemide [Lasix 20 mg Tablet] 20 mg PO QAM #30 tablet Home Medications: Amlodipine Besylate [Norvasc 5 mg Tablet] 5 mg PO DAILY 01/22/19 Aspirin [Adult Low Dose Aspirin EC] 81 mg PO DAILY 01/22/19 Cetirizine HCl [Zyrtec] 10 mg PO DAILY 01/22/19 Cyanocobalamin (Vitamin B-12) [B-12] 500 mcg PO DAILY 01/22/19 Eslicarbazepine Acetate [Aptiom] 1,400 mg PO QHS 01/22/19 Levothyroxine Sodium [Synthroid 0.05 mg Tablet] 50 mcg PO DAILY 01/22/19 Atorvastatin Calcium [Lipitor 20 mg Tablet] 20 mg PO QHS #30 tablet 01/24/19 Apixaban [Eliquis 5 mg Tablet] 5 mg PO BID@0800,2000 06/22/19 Potassium Chloride 10 meq PO BID 06/22/19 Trazodone HCl 100 mg PO DAILY 06/22/19 Acetaminophen [Acetaminophen Extra Strength] 1,000 mg PO Q4HP PRN 03/09/20 Albuterol Sulfate [Proair HFA Inhalation Aerosol 8.5 gm MDI] 2 puff IH Q4HP PRN 03/09/20 Albuterol Sulfate [Ventolin 0.083% Neb 2.5 mg/3 mL Ampul] 1 vial NEB Q8HP PRN 03/09/20 Escitalopram Oxalate [Lexapro 10 mg Tablet] 30 mg PO DAILY 03/09/20 Furosemide [Lasix 20 mg Tablet] 20 mg PO QAM #30 tablet 03/09/20 Lisinopril [Zestril] 2.5 mg PO BID 03/09/20 Lorazepam [Ativan 0.5 mg Tablet] 0.5 mg PO BIDP PRN 03/09/20 Metformin HCl [Metformin HCl ER] 500 mg PO QPM 03/09/20 Montelukast Sodium [Singulair 10 mg Tablet] 10 mg PO QPM 03/09/20 Nitroglycerin [Nitrostat 0.4 mg (1/150 Gr) Tabs 25/Bottle] 1 tab SL Q5MP PRN 03/09/20 Omeprazole 40 mg PO DAILY 03/09/20 History of Present Illiness History of Present Illness: ZHANNA HURTADO is a 69 year old male Physical Exam Vital Signs: Temp Pulse Resp BP Pulse Ox 98.0 F 38 L 19 150/53 H 97 03/09/20 17:37 03/09/20 17:37 03/09/20 17:37 03/09/20 15:17 03/09/20 17:37 Intake & Output 03/08/20 03/09/20 03/10/20 06:59 06:59 06:59 Intake Total 50 Balance 50 Weight 102 kg General appearance: PRESENT: no acute distress, cooperative, hard of hearing, obese Head exam: PRESENT: atraumatic, normocephalic Eye exam: PRESENT: EOMI, PERRLA Mouth exam: PRESENT: moist, tongue midline Neck exam: PRESENT: full ROM Respiratory exam: PRESENT: clear to auscultation rosey, symmetrical, unlabored Cardiovascular exam: PRESENT: RRR, +S1, +S2. ABSENT: systolic murmur Pulses: PRESENT: normal radial pulses GI/Abdominal exam: PRESENT: normal bowel sounds, soft. ABSENT: rebound, tenderness Extremities exam: PRESENT: full ROM, +1 edema Musculoskeletal exam: PRESENT: full ROM. ABSENT: dislocation, tenderness Neurological exam: PRESENT: alert, awake, oriented to person, oriented to place, oriented to time Psychiatric exam: PRESENT: appropriate affect, normal mood Skin exam: PRESENT: normal color Results Laboratory Results: WBC 5.1 10^3/uL (4.0-10.5) 03/08/20 20:00 RBC 3.91 10^6/uL (4.35-5.55) L 03/08/20 20:00 Hgb 12.2 g/dL (13.5-17.0) L 03/08/20 20:00 Hct 34.5 % (37.9-51.0) L 03/08/20 20: MCV 88 fl (80-97) 03/08/20 20: MCH 31.1 pg (27.0-33.4) 03/08/20 20: MCHC 35.3 g/dL (32.0-36.0) 03/08/20 20:00 RDW 14.5 % (11.5-14.0) H 03/08/20 20:00 Plt Count 127 10^3/uL (150-450) L 03/08/20 20: Lymph % (Auto) 25.6 % (13-45) 03/08/20 20:00 [place] % (Auto) 9.1 % (3-13) 03/08/20 20: Eos % (Auto) 17.6 % (0-6) H 03/08/20 20:00 Baso % (Auto) 0.4 % (0-2) 03/08/20 20:00 Absolute Neuts (auto) 2.4 10^3/uL (1.7-8.2) 03/08/20 20:00 Absolute Lymphs (auto) 1.3 10^3/uL (0.5-4.7) 03/08/20 20:00 Absolute Monos (auto) 0.5 10^3/uL (0.1-1.4) 03/08/20 20:00 Absolute Eos (auto) 0.9 10^3/uL (0.0-0.6) H 03/08/20 20:00 Absolute Basos (auto) 0.0 10^3/uL (0.0-0.2) 03/08/20 20: Seg Neutrophils % 47.3 % (42-78) 03/08/20 20: PT 16.8 SEC (11.4-15.4) H 03/08/20 20:00 INR 1.35 03/08/20 20:00 Sodium 127.8 mmol/L (137-145) L 03/08/20 20:00 Potassium 4.2 mmol/L (3.6-5.0) 03/08/20 20:00 Chloride 91 mmol/L (98-107) L 03/08/20 20:00 Carbon Dioxide 31 mmol/L (22-30) H 03/08/20 20:00 Anion Gap 6 (5-19) 03/08/20 20:00 BUN 9 mg/dL (7-20) 03/08/20 20:00 Creatinine 0.49 mg/dL (0.52-1.25) L 03/08/20 20:00 Est GFR ( Amer) > 60 (>60) 03/08/20 20:00 Est GFR (MDRD) Non-Af > 60 (>60) 03/08/20 20:00 Glucose 88 mg/dL (75-110) 03/08/20 20:00 POC Glucose 113 mg/dL (70-110) H 03/09/20 15:52 Calcium 8.0 mg/dL (8.4-10.2) L 03/08/20 20:00 Magnesium 1.7 mg/dL (1.6-2.3) 03/08/20 20:00 Total Bilirubin 0.5 mg/dL (0.2-1.3) 03/08/20 20:00 Direct Bilirubin 0.2 mg/dL (0.0-0.4) 03/08/20 20:00 Neonat Total Bilirubin Not Reportable 03/08/20 20:00 Neonat Direct Bilirubin Not Reportable 03/08/20 20:00 Neonat Indirect Bili Not Reportable 03/08/20 20:00 AST 16 U/L (17-59) L 03/08/20 20:00 ALT 10 U/L (<50) 03/08/20 20:00 Alkaline Phosphatase 112 U/L (38-126) 03/08/20 20:00 Creatine Kinase < 20 U/L (55-170) L 03/08/20 20:00 Troponin I < 0.012 ng/mL 03/08/20 20:00 Total Protein 5.5 g/dL (6.3-8.2) L 03/08/20 20:00 Albumin 3.3 g/dL (3.5-5.0) L 03/08/20 20:00 TSH 0.62 uIU/mL (0.47-4.68) 03/08/20 20:00 Urine Color YELLOW 03/08/20 21:35 Urine Appearance CLEAR 03/08/20 21:35 Urine pH 7.0 (5.0-9.0) 03/08/20 21:35 Ur Specific [place] 1.010 03/08/20 21:35 Urine Protein NEGATIVE mg/dL (NEGATIVE) 03/08/20 21:35 Urine Glucose (UA) NEGATIVE mg/dL (NEGATIVE) 03/08/20 21:35 Urine Ketones NEGATIVE mg/dL (NEGATIVE) 03/08/20 21:35 Urine Blood LARGE (NEGATIVE) H 03/08/20 21:35 Urine Nitrite NEGATIVE (NEGATIVE) 03/08/20 21:35 Urine Bilirubin NEGATIVE (NEGATIVE) 03/08/20 21:35 Urine Urobilinogen 4.0 mg/dL (<2.0) H 03/08/20 21:35 Ur Leukocyte Esterase MODERATE (NEGATIVE) H 03/08/20 21:35 Urine WBC (Auto) 43 /HPF 03/08/20 21:35 Urine RBC (Auto) 162 /HPF 03/08/20 21:35 Squamous Epi Cells Auto <1 /HPF 03/08/20 21:35 Urine Mucus (Auto) RARE /LPF 03/08/20 21:35 Urine Ascorbic Acid NEGATIVE (NEGATIVE) 03/08/20 21:35 03/08/20 20:00 Troponin I < 0.012 EKG Comments: Sinus bradycardia with rate in the 30s. First degree AV block. Nonspecific IVCD with LAD, Inferior artifact. Impressions: Chest X-Ray 03/08/20 19:56 IMPRESSION: Chronic findings. No acute findings. Plan Time Spent: Greater than 30 Minutes Stroke Is this a Stroke Patient?: No Acute Heart Failure Is this a Heart Failure Patient?: No LVEF - Reason: Case discussed with Dr. Willson f/u with cardiology in 1-2 weeks for echo ARB Reason - Other: ACEI
== END 2020-03-09 18:18 | disposition home or self-care (01) ==
LOC: ER 19:31 → EH 03-09 02:28 → 4N 03-09 04:01
PROVIDERS: ADMIT Internal Medicine; ATTEND Hospitalist
DX: R00.1 Bradycardia, unspecified (principal); I44.0 Atrioventricular block, first degree; I48.20 Chronic atrial fibrillation, unspecified; E87.1 Hypo-osmolality and hyponatremia; R31.9 Hematuria, unspecified; D64.9 Anemia, unspecified; I11.0 Hypertensive heart disease with heart failure; I50.9 Heart failure, unspecified; I25.10 Atherosclerotic heart disease of native coronary artery without angina pectoris; E03.9 Hypothyroidism, unspecified; E11.9 Type 2 diabetes mellitus without complications; Z86.73 Personal history of transient ischemic attack (TIA), and cerebral infarction without residual deficits; Z79.82 Long term (current) use of aspirin; Z79.899 Other long term (current) drug therapy; Z79.84 Long term (current) use of oral hypoglycemic drugs; J44.9 Chronic obstructive pulmonary disease, unspecified
CPT/HCPCS: 93005; 99285; 96365; 36415; 82962; 82550; 83735; 84443; 85025; 85610; 80053; 81001; 84484; 71045; 93010; G0378 ×2; J0610; A9270 ×9; J3490